=== PATIENT | female | born 1980 | race African-American/Black ===

== ENCOUNTER 2018-08-19 07:11 | Inpatient (IN) | payer OTHER ==
[2018-08-19 08:31] LABS: BASO % 0.5 % (0.0-1.0); EOS # 0.1 10^3/uL (0.0-0.50); EOS % 0.6 % (0.0-3.0); HEMATOCRIT 35.3 % (36.0-47.0); HEMOGLOBIN 12.3 g/dl (12.0-15.5); IMMATURE GRANULOCYTE % 0.5 % (0-3.0); LYMPH # 1.7 10^3/uL (1.5-4.5); LYMPH % 19.2 % (24.0-44.0); MEAN CORPUSCULAR HEMOGLOBIN 33.4 pg (27.0-33.0); MEAN CORPUSCULAR HGB CONC 34.8 g/dl (32.0-36.5); MEAN CORPUSCULAR VOLUME 95.9 fl (80.0-96.0); MONO # 0.9 10^3/uL (0.0-0.8); MONO % 10.3 % (0.0-5.0); NEUTROPHILS # 6.1 10^3/uL (1.8-7.7); NEUTROPHILS % 68.9 % (36.0-66.0); PLATELET COUNT, AUTOMATED 306 10^3/uL (150-450); RED BLOOD COUNT 3.68 10^6/uL (4.00-5.40); RED CELL DISTRIBUTION WIDTH 14.8 % (11.5-14.5); WHITE BLOOD COUNT 8.8 10^3/uL (4.0-10.0)
[2018-08-19] MEDS: NS 1,000 ML IV ×3 (08:39→20:58)
[2018-08-19] MEDS: MORPHINE 4 MG/ML 1ML VIAL/SYRINGE (J2270) IV ×2 (08:39→20:07)
[2018-08-19] MEDS: GASTROGRAFIN SOLUTION 30ML PO ×2 (08:45→08:46)
[2018-08-19 08:54] LABS: ALBUMIN 3.8 GM/DL (3.2-5.2); ALBUMIN/GLOBULIN RATIO 0.93 (1.00-1.93); ALKALINE PHOSPHATASE 220 U/L (45-117); ALT/SGPT 139 U/L (12-78); ANION GAP 12 MEQ/L (8-16); AST/SGOT 357 U/L (7-37); BILIRUBIN,DIRECT 0.6 MG/DL (0.0-0.2); BILIRUBIN,TOTAL 0.9 MG/DL (0.2-1.0); BLOOD UREA NITROGEN 5 MG/DL (7-18); CALCIUM LEVEL 9.6 MG/DL (8.5-10.1); CARBON DIOXIDE LEVEL 32 MEQ/L (21-32); CHLORIDE LEVEL 92 MEQ/L (98-107); CREATININE FOR GFR 0.66 MG/DL (0.55-1.30); GLOMERULAR FILTRATION RATE > 60.0 (>60); GLUCOSE, FASTING 90 MG/DL (70-100); LIPASE 397 U/L (73-393); POTASSIUM SERUM 2.5 MEQ/L (3.5-5.1); SODIUM LEVEL 136 MEQ/L (136-145); TOTAL PROTEIN 7.9 GM/DL (6.4-8.2)
[2018-08-19 08:59] LABS: CONTROL LINE HCG INT CTR LINE PRESENT; HCG, SERUM QUALITATIVE NEGATIVE (NEGATIVE)
[2018-08-19] MEDS: POTASSIUM CHLORIDE 10 MEQ SR TABLET PO ×2 (09:12→19:56)
[2018-08-19] MEDS: KCL 10MEQ/100ML SWI (KRUN) 10 MEQ in APPROPRIATE DILUENT 1 EA IV ×2 (09:13→19:57)
[2018-08-19] MEDS ORDERED: ONDANSETRON 4MG/2ML VIAL (J2405) As Ordered (09:43)
[2018-08-19] MEDS: ONDANSETRON 4MG/2ML VIAL (J2405) IV (09:45)
[2018-08-19] MEDS ORDERED: ISOVUE-370 76% 100ML VIAL (Q9967) As Ordered (10:00)
[2018-08-19 11:06] LABS: GOLD SPEC TUBE RECIEVED
[2018-08-19] MEDS ORDERED: ONDANSETRON 4MG/2ML VIAL (J2405) IV (13:00)
[2018-08-19 13:57] LABS: MAGNESIUM LEVEL 1.7 MG/DL (1.8-2.4)
[2018-08-19] MEDS: PANTOPRAZOLE 40MG INJ (PROTONIX) (C9113) IV (15:52)
[2018-08-19] MEDS: MAGNESIUM OXIDE 400 MG TAB (MAG-OX) PO (15:53)
[2018-08-19] MEDS: KCL 40MEQ in NS 1000ML 1,000 ML IV (21:35)
[2018-08-20] MEDS: MORPHINE 4 MG/ML 1ML VIAL/SYRINGE (J2270) IV ×2 (05:37→21:39)
[2018-08-20] MEDS: NS 1,000 ML IV ×2 (05:38→20:55)
[2018-08-20 06:50] LABS: HEMOGLOBIN 9.8 g/dl (12.0-15.5); MEAN CORPUSCULAR HEMOGLOBIN 33.4 pg (27.0-33.0); MEAN CORPUSCULAR HGB CONC 33.8 g/dl (32.0-36.5); PLATELET COUNT, AUTOMATED 258 10^3/uL (150-450); RED BLOOD COUNT 2.93 10^6/uL (4.00-5.40); RED CELL DISTRIBUTION WIDTH 15.2 % (11.5-14.5); WHITE BLOOD COUNT 7.3 10^3/uL (4.0-10.0)
[2018-08-20 07:16] LABS: ALBUMIN 2.8 GM/DL (3.2-5.2); ALBUMIN/GLOBULIN RATIO 0.85 (1.00-1.93); ALKALINE PHOSPHATASE 149 U/L (45-117); ALT/SGPT 79 U/L (12-78); ANION GAP 7 MEQ/L (8-16); AST/SGOT 133 U/L (7-37); BILIRUBIN,TOTAL 1.2 MG/DL (0.2-1.0); BLOOD UREA NITROGEN 3 MG/DL (7-18); CALCIUM LEVEL 7.9 MG/DL (8.5-10.1); CARBON DIOXIDE LEVEL 29 MEQ/L (21-32); CHLORIDE LEVEL 99 MEQ/L (98-107); CREATININE FOR GFR 0.46 MG/DL (0.55-1.30); GLOMERULAR FILTRATION RATE > 60.0 (>60); GLUCOSE, FASTING 86 MG/DL (70-100); LIPASE 340 U/L (73-393); MAGNESIUM LEVEL 1.3 MG/DL (1.8-2.4); SODIUM LEVEL 135 MEQ/L (136-145); TOTAL PROTEIN 6.1 GM/DL (6.4-8.2)
[2018-08-20] MEDS: ENOXAPARIN 40 MG/0.4 ML SYRINGE (J1650) SC (08:22)
[2018-08-20] MEDS: MAGNESIUM OXIDE 400 MG TAB (MAG-OX) PO ×2 (08:22→20:54)
[2018-08-20] MEDS: PANTOPRAZOLE 40MG INJ (PROTONIX) (C9113) IV (08:22)
[2018-08-20] MEDS: MAG SULF 1GM/100ML (MAG RUN) 1 GM in APPROPRIATE DILUENT 1 EA IV ×3 (08:23→10:51)
[2018-08-20] MEDS: POTASSIUM CHLORIDE 10 MEQ SR TABLET PO (08:23)
[2018-08-21] MEDS: NS 1,000 ML IV ×3 (05:18→23:10)
[2018-08-21 06:12] LABS: HEMATOCRIT 29.1 % (36.0-47.0); HEMOGLOBIN 9.9 g/dl (12.0-15.5); MEAN CORPUSCULAR HEMOGLOBIN 33.4 pg (27.0-33.0); MEAN CORPUSCULAR VOLUME 98.3 fl (80.0-96.0); PLATELET COUNT, AUTOMATED 269 10^3/uL (150-450); RED BLOOD COUNT 2.96 10^6/uL (4.00-5.40); RED CELL DISTRIBUTION WIDTH 14.7 % (11.5-14.5); WHITE BLOOD COUNT 8.9 10^3/uL (4.0-10.0)
[2018-08-21 06:39] LABS: ALBUMIN 2.7 GM/DL (3.2-5.2); ALBUMIN/GLOBULIN RATIO 0.87 (1.00-1.93); ALKALINE PHOSPHATASE 136 U/L (45-117); ALT/SGPT 62 U/L (12-78); ANION GAP 8 MEQ/L (8-16); AST/SGOT 102 U/L (7-37); BILIRUBIN,TOTAL 0.8 MG/DL (0.2-1.0); BLOOD UREA NITROGEN < 1 MG/DL (7-18); CALCIUM LEVEL 7.8 MG/DL (8.5-10.1); CARBON DIOXIDE LEVEL 29 MEQ/L (21-32); CHLORIDE LEVEL 103 MEQ/L (98-107); CHOLESTEROL LEVEL 157 MG/DL (<200); CHOLESTEROL RISK RATIO 2.121 (<5); GLOMERULAR FILTRATION RATE > 60.0 (>60); GLUCOSE, FASTING 91 MG/DL (70-100); HDL CHOLESTEROL 74 MG/DL (>40); LDL CHOLESTEROL 69 MG/DL (<100); MAGNESIUM LEVEL 1.7 MG/DL (1.8-2.4); NON-HDL-C 83 MG/DL; SODIUM LEVEL 140 MEQ/L (136-145); TOTAL PROTEIN 5.8 GM/DL (6.4-8.2); TRIGLYCERIDES LEVEL 71 MG/DL (<150)
[2018-08-21] MEDS: MAGNESIUM OXIDE 400 MG TAB (MAG-OX) PO ×2 (08:52→20:25)
[2018-08-21] MEDS: PANTOPRAZOLE 40MG INJ (PROTONIX) (C9113) IV (08:52)
[2018-08-21] MEDS: ENOXAPARIN 40 MG/0.4 ML SYRINGE (J1650) SC (08:52)
[2018-08-21] MEDS: POTASSIUM CHLORIDE 10 MEQ SR TABLET PO (08:52)
[2018-08-21] MEDS: KCL 10MEQ/100ML SWI (KRUN) 10 MEQ in APPROPRIATE DILUENT 1 EA IV ×2 (08:54→13:08)
[2018-08-21] MEDS: MORPHINE 4 MG/ML 1ML VIAL/SYRINGE (J2270) IV ×3 (09:05→20:25)
[2018-08-21 11:09] LABS: HEPATITIS B SURFACE ANTIGEN NEGATIVE (NEGATIVE)
[2018-08-21 11:33] LABS: HEPATITIS C VIRUS ABY INDEX 0.1 INDEX (<0.8)
[2018-08-21 11:34] LABS: HEPATITIS B CORE ANTIBODY IGM NEGATIVE (NEGATIVE)
[2018-08-21 11:37] LABS: HEPATITIS A ANTIBODY IGM NEGATIVE (NEGATIVE)
[2018-08-21 17:44] LABS: ANION GAP 8 MEQ/L (8-16); BLOOD UREA NITROGEN < 1 MG/DL (7-18); CALCIUM LEVEL 8.2 MG/DL (8.5-10.1); CARBON DIOXIDE LEVEL 27 MEQ/L (21-32); CHLORIDE LEVEL 101 MEQ/L (98-107); CREATININE FOR GFR 0.48 MG/DL (0.55-1.30); GLOMERULAR FILTRATION RATE > 60.0 (>60); GLUCOSE, FASTING 96 MG/DL (70-100); POTASSIUM SERUM 3.7 MEQ/L (3.5-5.1); SODIUM LEVEL 136 MEQ/L (136-145)
[2018-08-22 06:40] LABS: HEMATOCRIT 28.7 % (36.0-47.0); HEMOGLOBIN 9.9 g/dl (12.0-15.5); MEAN CORPUSCULAR HEMOGLOBIN 33.4 pg (27.0-33.0); MEAN CORPUSCULAR HGB CONC 34.5 g/dl (32.0-36.5); PLATELET COUNT, AUTOMATED 283 10^3/uL (150-450); RED BLOOD COUNT 2.96 10^6/uL (4.00-5.40); WHITE BLOOD COUNT 9.7 10^3/uL (4.0-10.0)
[2018-08-22] MEDS: NS 1,000 ML IV (06:47)
[2018-08-22 07:06] LABS: ALBUMIN 2.5 GM/DL (3.2-5.2); ALBUMIN/GLOBULIN RATIO 0.76 (1.00-1.93); ALKALINE PHOSPHATASE 143 U/L (45-117); ALT/SGPT 61 U/L (12-78); ANION GAP 7 MEQ/L (8-16); AST/SGOT 111 U/L (7-37); BILIRUBIN,TOTAL 0.7 MG/DL (0.2-1.0); BLOOD UREA NITROGEN < 1 MG/DL (7-18); CALCIUM LEVEL 7.7 MG/DL (8.5-10.1); CARBON DIOXIDE LEVEL 27 MEQ/L (21-32); CHLORIDE LEVEL 102 MEQ/L (98-107); CREATININE FOR GFR 0.47 MG/DL (0.55-1.30); GLOMERULAR FILTRATION RATE > 60.0 (>60); GLUCOSE, FASTING 83 MG/DL (70-100); MAGNESIUM LEVEL 1.5 MG/DL (1.8-2.4); POTASSIUM SERUM 3.4 MEQ/L (3.5-5.1); SODIUM LEVEL 136 MEQ/L (136-145); TOTAL PROTEIN 5.8 GM/DL (6.4-8.2)
[2018-08-22 07:51] LABS: LIPASE 334 U/L (73-393)
[2018-08-22] MEDS: ENOXAPARIN 40 MG/0.4 ML SYRINGE (J1650) SC (09:00)
[2018-08-22] MEDS: MAGNESIUM OXIDE 400 MG TAB (MAG-OX) PO (09:41)
[2018-08-22] MEDS: PANTOPRAZOLE 40MG INJ (PROTONIX) (C9113) IV (10:01)
== END 2018-08-22 10:24 | disposition home or self-care (01) | DRG 440 ==
LOC: M ED 07:11 → M ED INP 12:58 → M MSPAV 15:26
PROVIDERS: Internal Medicine
DX: K85.10 Biliary acute pancreatitis without necrosis or infection (principal); E87.6 Hypokalemia; I10 Essential (primary) hypertension; K25.9 Gastric ulcer, unspecified as acute or chronic, without hemorrhage or perforation; D50.9 Iron deficiency anemia, unspecified; K82.9 Disease of gallbladder, unspecified; F10.10 Alcohol abuse, uncomplicated; K21.9 Gastro-esophageal reflux disease without esophagitis; E83.42 Hypomagnesemia; Z79.899 Other long term (current) drug therapy

== ENCOUNTER 2018-09-30 17:01 | Emergency (ER) | payer OTHER ==
[2018-09-30 17:56] LABS: BASO % 0.3 % (0.0-1.0); EOS % 0.3 % (0.0-3.0); HEMATOCRIT 31.1 % (36.0-47.0); HEMOGLOBIN 10.7 g/dl (12.0-15.5); IMMATURE GRANULOCYTE % 0.2 % (0-3.0); LYMPH # 1.7 10^3/uL (1.5-4.5); LYMPH % 19.5 % (24.0-44.0); MEAN CORPUSCULAR HEMOGLOBIN 34.3 pg (27.0-33.0); MEAN CORPUSCULAR HGB CONC 34.4 g/dl (32.0-36.5); MEAN CORPUSCULAR VOLUME 99.7 fl (80.0-96.0); MONO # 0.7 10^3/uL (0.0-0.8); MONO % 7.6 % (0.0-5.0); NEUTROPHILS # 6.3 10^3/uL (1.8-7.7); NEUTROPHILS % 72.1 % (36.0-66.0); PLATELET COUNT, AUTOMATED 189 10^3/uL (150-450); RED BLOOD COUNT 3.12 10^6/uL (4.00-5.40); RED CELL DISTRIBUTION WIDTH 14.4 % (11.5-14.5); WHITE BLOOD COUNT 8.8 10^3/uL (4.0-10.0)
[2018-09-30 18:02] LABS: AMORPHOUS SEDIMENT RFX LARGE (NEGATIVE); KETONE, URINE AUTO RFX TRACE mg/dL (NEGATIVE); MUCUS, URINE RFX LARGE (NEGATIVE); NITRITE, URINE AUTO RFX NEGATIVE (NEGATIVE); RBC, URINE AUTO RFX 2 /HPF (0-3); SPECIFIC GRAVITY UR AUTO RFX 1.023 (1.002-1.035); SQUAM EPITHELIAL CELL UR AURFX 4 /HPF (0-6); WBC, URINE AUTO RFX 4 /HPF (0-3)
[2018-09-30 18:17] LABS: ANION GAP 12 MEQ/L (8-16); AST/SGOT 557 U/L (7-37); BLOOD UREA NITROGEN 4 MG/DL (7-18); CALCIUM LEVEL 9.3 MG/DL (8.5-10.1); CARBON DIOXIDE LEVEL 29 MEQ/L (21-32); CHLORIDE LEVEL 97 MEQ/L (98-107); CREATININE FOR GFR 0.59 MG/DL (0.55-1.30); GLOMERULAR FILTRATION RATE > 60.0 (>60); GLUCOSE, FASTING 82 MG/DL (70-100); POTASSIUM SERUM 3.3 MEQ/L (3.5-5.1); SODIUM LEVEL 138 MEQ/L (136-145)
[2018-09-30 18:18] LABS: ALBUMIN 3.7 GM/DL (3.2-5.2); ALKALINE PHOSPHATASE 258 U/L (45-117); ALT/SGPT 141 U/L (12-78); AMYLASE 75 U/L (25-115); BILIRUBIN,DIRECT 0.5 MG/DL (0.0-0.2); BILIRUBIN,TOTAL 0.7 MG/DL (0.2-1.0); LIPASE 480 U/L (73-393); MAGNESIUM LEVEL 1.1 MG/DL (1.8-2.4); TOTAL PROTEIN 7.8 GM/DL (6.4-8.2)
[2018-09-30 18:42] LABS: LEUKOCYTE ESTERASE UR AUTO RFX TRACE (NEGATIVE)
== END 2018-09-30 19:07 | disposition home or self-care (01) ==
LOC: M ED 17:01
DX: R10.13 Epigastric pain (principal); I10 Essential (primary) hypertension; D53.9 Nutritional anemia, unspecified; E87.6 Hypokalemia; E83.42 Hypomagnesemia; K75.81 Nonalcoholic steatohepatitis (NASH); R80.9 Proteinuria, unspecified; R74.8 Abnormal levels of other serum enzymes; K21.9 Gastro-esophageal reflux disease without esophagitis; K83.8 Other specified diseases of biliary tract; K27.9 Peptic ulcer, site unspecified, unspecified as acute or chronic, without hemorrhage or perforation; F17.200 Nicotine dependence, unspecified, uncomplicated; Z79.899 Other long term (current) drug therapy; F10.10 Alcohol abuse, uncomplicated
CPT/HCPCS: 82150

== ENCOUNTER 2018-10-01 16:44 | Inpatient (IN) | payer OTHER ==
[2018-10-01] MEDS ORDERED: ISOVUE-370 76% 100ML VIAL (Q9967) As Ordered (17:11)
[2018-10-01] MEDS: NS 1,000 ML IV (17:15)
[2018-10-01 17:35] LABS: BASO % 0.2 % (0.0-1.0); EOS % 0.4 % (0.0-3.0); HEMATOCRIT 32.9 % (36.0-47.0); HEMOGLOBIN 11.4 g/dl (12.0-15.5); IMMATURE GRANULOCYTE % 0.4 % (0-3.0); LYMPH # 1.5 10^3/uL (1.5-4.5); LYMPH % 18.2 % (24.0-44.0); MEAN CORPUSCULAR HEMOGLOBIN 34.1 pg (27.0-33.0); MEAN CORPUSCULAR HGB CONC 34.7 g/dl (32.0-36.5); MEAN CORPUSCULAR VOLUME 98.5 fl (80.0-96.0); MONO # 0.7 10^3/uL (0.0-0.8); MONO % 8.9 % (0.0-5.0); NEUTROPHILS # 5.8 10^3/uL (1.8-7.7); NEUTROPHILS % 71.9 % (36.0-66.0); PLATELET COUNT, AUTOMATED 215 10^3/uL (150-450); RED BLOOD COUNT 3.34 10^6/uL (4.00-5.40); RED CELL DISTRIBUTION WIDTH 14.2 % (11.5-14.5)
[2018-10-01 17:40] LABS: INR 1.41; PROTHROMBIN TIME 17.4 SECONDS (12.1-14.4)
[2018-10-01 17:41] LABS: PARTIAL THROMBOPLASTIN TIME 32.8 SECONDS (25.4-37.6)
[2018-10-01 17:46] LABS: AMMONIA 58 uMOL/L (<32)
[2018-10-01 18:01] LABS: ALBUMIN 3.7 GM/DL (3.2-5.2); ALBUMIN/GLOBULIN RATIO 0.93 (1.00-1.93); ALKALINE PHOSPHATASE 258 U/L (45-117); ALT/SGPT 120 U/L (12-78); AMYLASE 97 U/L (25-115); ANION GAP 11 MEQ/L (8-16); AST/SGOT 371 U/L (7-37); BILIRUBIN,DIRECT 0.8 MG/DL (0.0-0.2); BILIRUBIN,TOTAL 1.5 MG/DL (0.2-1.0); BLOOD UREA NITROGEN 4 MG/DL (7-18); CALCIUM LEVEL 8.9 MG/DL (8.5-10.1); CARBON DIOXIDE LEVEL 28 MEQ/L (21-32); CHLORIDE LEVEL 95 MEQ/L (98-107); CREATININE FOR GFR 0.69 MG/DL (0.55-1.30); GLOMERULAR FILTRATION RATE > 60.0 (>60); GLUCOSE, FASTING 92 MG/DL (70-100); LIPASE 1071 U/L (73-393); POTASSIUM SERUM 3.3 MEQ/L (3.5-5.1); SODIUM LEVEL 134 MEQ/L (136-145); TOTAL PROTEIN 7.7 GM/DL (6.4-8.2)
[2018-10-01 19:06] LABS: KETONE, URINE AUTO RFX TRACE mg/dL (NEGATIVE); LEUKOCYTE ESTERASE UR AUTO RFX NEGATIVE (NEGATIVE); NITRITE, URINE AUTO RFX NEGATIVE (NEGATIVE); RBC, URINE AUTO RFX 2 /HPF (0-3); SQUAM EPITHELIAL CELL UR AURFX 1 /HPF (0-6); WBC, URINE AUTO RFX 2 /HPF (0-3)
[2018-10-01 19:13] LABS: SPECIFIC GRAVITY UR AUTO RFX >1.060 (1.002-1.035)
[2018-10-01] MEDS ORDERED: ONDANSETRON 4MG/2ML VIAL (J2405) IV (22:15)
[2018-10-01] MEDS ORDERED: LORazepam 2 MG TAB PO (22:30)
[2018-10-01 22:33] LABS: ETHYL ALCOHOL (ETHANOL) 0.004 % (0.000-0.010)
[2018-10-02] MEDS: POTASSIUM CHLORIDE 10 MEQ SR TABLET PO ×3 (00:54→08:28)
[2018-10-02] MEDS: THIAMINE 100 MG TAB PO ×3 (00:54→20:35)
[2018-10-02] MEDS: NS 1,000 ML IV (00:54)
[2018-10-02] MEDS: MORPHINE 4 MG/ML 1ML VIAL/SYRINGE (J2270) IV ×3 (01:14→20:36)
[2018-10-02] MEDS: LR 1,000 ML IV ×3 (02:04→07:41)
[2018-10-02 06:45] LABS: HEMOGLOBIN 9.7 g/dl (12.0-15.5); MEAN CORPUSCULAR HEMOGLOBIN 34.6 pg (27.0-33.0); MEAN CORPUSCULAR HGB CONC 34.6 g/dl (32.0-36.5); PLATELET COUNT, AUTOMATED 184 10^3/uL (150-450); RED CELL DISTRIBUTION WIDTH 13.8 % (11.5-14.5); WHITE BLOOD COUNT 6.3 10^3/uL (4.0-10.0)
[2018-10-02 07:23] LABS: ALBUMIN 2.8 GM/DL (3.2-5.2); ALBUMIN/GLOBULIN RATIO 0.78 (1.00-1.93); ALKALINE PHOSPHATASE 188 U/L (45-117); ALT/SGPT 81 U/L (12-78); ANION GAP 11 MEQ/L (8-16); AST/SGOT 201 U/L (7-37); BILIRUBIN,TOTAL 1.4 MG/DL (0.2-1.0); BLOOD UREA NITROGEN 3 MG/DL (7-18); CALCIUM LEVEL 7.7 MG/DL (8.5-10.1); CARBON DIOXIDE LEVEL 24 MEQ/L (21-32); CHLORIDE LEVEL 101 MEQ/L (98-107); CHOLESTEROL LEVEL 162 MG/DL (<200); GLOMERULAR FILTRATION RATE > 60.0 (>60); GLUCOSE, FASTING 76 MG/DL (70-100); HDL CHOLESTEROL 75 MG/DL (>40); LDL CHOLESTEROL 69 MG/DL (<100); MAGNESIUM LEVEL 0.9 MG/DL (1.8-2.4); NON-HDL-C 87 MG/DL; POTASSIUM SERUM 3.6 MEQ/L (3.5-5.1); SODIUM LEVEL 136 MEQ/L (136-145); TOTAL PROTEIN 6.4 GM/DL (6.4-8.2); TRIGLYCERIDES LEVEL 89 MG/DL (<150)
[2018-10-02] MEDS: MULTIVITAMINS/MINERALS THERAP 1 TAB PO (08:00)
[2018-10-02] MEDS: FOLIC ACID 1 MG TAB PO (08:00)
[2018-10-02] MEDS: OMEPRAZOLE 20 MG CAP PO (08:00)
[2018-10-02] MEDS: MAG SULF 1GM/100ML (MAG RUN) 1 GM in APPROPRIATE DILUENT 1 EA IV ×3 (08:00→10:10)
[2018-10-02] MEDS: OXAZEPAM 10 MG CAP PO ×3 (08:28→17:44)
[2018-10-02] MEDS: POTASSIUM CHLORIDE INJ 20 MEQ in LR 1,000 ML IV ×3 (11:18→17:28)
[2018-10-03] MEDS: POTASSIUM CHLORIDE INJ 20 MEQ in LR 1,000 ML IV ×2 (00:12→06:39)
[2018-10-03] MEDS: OXAZEPAM 10 MG CAP PO ×3 (05:51→12:20)
[2018-10-03 06:21] LABS: HEMATOCRIT 30.2 % (36.0-47.0); HEMOGLOBIN 10.1 g/dl (12.0-15.5); MEAN CORPUSCULAR HGB CONC 33.4 g/dl (32.0-36.5); MEAN CORPUSCULAR VOLUME 101.7 fl (80.0-96.0); PLATELET COUNT, AUTOMATED 199 10^3/uL (150-450); RED BLOOD COUNT 2.97 10^6/uL (4.00-5.40); WHITE BLOOD COUNT 6.7 10^3/uL (4.0-10.0)
[2018-10-03 06:31] LABS: INR 1.14; PROTHROMBIN TIME 14.8 SECONDS (12.1-14.4)
[2018-10-03 06:50] LABS: ALBUMIN 2.7 GM/DL (3.2-5.2); ALBUMIN/GLOBULIN RATIO 0.69 (1.00-1.93); ALKALINE PHOSPHATASE 190 U/L (45-117); ALT/SGPT 69 U/L (12-78); ANION GAP 9 MEQ/L (8-16); AST/SGOT 148 U/L (7-37); BILIRUBIN,TOTAL 0.6 MG/DL (0.2-1.0); BLOOD UREA NITROGEN 4 MG/DL (7-18); CALCIUM LEVEL 8.1 MG/DL (8.5-10.1); CARBON DIOXIDE LEVEL 24 MEQ/L (21-32); CHLORIDE LEVEL 104 MEQ/L (98-107); CREATININE FOR GFR 0.55 MG/DL (0.55-1.30); GLOMERULAR FILTRATION RATE > 60.0 (>60); GLUCOSE, FASTING 106 MG/DL (70-100); LIPASE 471 U/L (73-393); MAGNESIUM LEVEL 1.7 MG/DL (1.8-2.4); POTASSIUM SERUM 4.4 MEQ/L (3.5-5.1); SODIUM LEVEL 137 MEQ/L (136-145); TOTAL PROTEIN 6.6 GM/DL (6.4-8.2)
[2018-10-03] MEDS: MAG SULF 1GM/100ML (MAG RUN) 1 GM in APPROPRIATE DILUENT 1 EA IV (07:54)
[2018-10-03] MEDS: OMEPRAZOLE 20 MG CAP PO (07:56)
[2018-10-03] MEDS: THIAMINE 100 MG TAB PO ×2 (07:56→19:50)
[2018-10-03] MEDS: MULTIVITAMINS/MINERALS THERAP 1 TAB PO (07:57)
[2018-10-03] MEDS: FOLIC ACID 1 MG TAB PO (07:57)
[2018-10-03] MEDS: LR 1,000 ML IV ×2 (11:01→19:50)
[2018-10-03] MEDS: MORPHINE 4 MG/ML 1ML VIAL/SYRINGE (J2270) IV (19:50)
[2018-10-04 05:36] LABS: HEMATOCRIT 28.3 % (36.0-47.0); HEMOGLOBIN 9.6 g/dl (12.0-15.5); MEAN CORPUSCULAR HEMOGLOBIN 33.9 pg (27.0-33.0); MEAN CORPUSCULAR HGB CONC 33.9 g/dl (32.0-36.5); PLATELET COUNT, AUTOMATED 225 10^3/uL (150-450); RED BLOOD COUNT 2.83 10^6/uL (4.00-5.40); RED CELL DISTRIBUTION WIDTH 14.2 % (11.5-14.5)
[2018-10-04 05:45] LABS: INR 1.12; PROTHROMBIN TIME 14.6 SECONDS (12.1-14.4)
[2018-10-04] MEDS: IBUPROFEN 400 MG TAB PO (05:46)
[2018-10-04] MEDS: LR 1,000 ML IV ×3 (05:47→23:56)
[2018-10-04 05:57] LABS: ALBUMIN 2.7 GM/DL (3.2-5.2); ALBUMIN/GLOBULIN RATIO 0.73 (1.00-1.93); ALKALINE PHOSPHATASE 170 U/L (45-117); ALT/SGPT 63 U/L (12-78); ANION GAP 7 MEQ/L (8-16); AST/SGOT 113 U/L (7-37); BILIRUBIN,TOTAL 0.5 MG/DL (0.2-1.0); BLOOD UREA NITROGEN 5 MG/DL (7-18); CALCIUM LEVEL 8.3 MG/DL (8.5-10.1); CARBON DIOXIDE LEVEL 24 MEQ/L (21-32); CHLORIDE LEVEL 103 MEQ/L (98-107); CREATININE FOR GFR 0.57 MG/DL (0.55-1.30); GLOMERULAR FILTRATION RATE > 60.0 (>60); GLUCOSE, FASTING 94 MG/DL (70-100); LIPASE 553 U/L (73-393); MAGNESIUM LEVEL 1.4 MG/DL (1.8-2.4); POTASSIUM SERUM 3.9 MEQ/L (3.5-5.1); SODIUM LEVEL 134 MEQ/L (136-145); TOTAL PROTEIN 6.4 GM/DL (6.4-8.2)
[2018-10-04] MEDS: OMEPRAZOLE 20 MG CAP PO (08:33)
[2018-10-04] MEDS: MULTIVITAMINS/MINERALS THERAP 1 TAB PO (08:33)
[2018-10-04] MEDS: FOLIC ACID 1 MG TAB PO (08:33)
[2018-10-04] MEDS: THIAMINE 100 MG TAB PO ×2 (08:33→09:00)
[2018-10-04] MEDS: MAG SULF 1GM/100ML (MAG RUN) 1 GM in APPROPRIATE DILUENT 1 EA IV ×2 (09:41→10:49)
[2018-10-04] MEDS: SUCRALFATE 1 GM TAB PO ×2 (12:07→17:41)
[2018-10-04] MEDS: ACETAMINOPHEN TAB 650MG DOSE (2X325MG) PO (18:20)
[2018-10-04] MEDS: MORPHINE 4 MG/ML 1ML VIAL/SYRINGE (J2270) IV (22:01)
[2018-10-05] MEDS: ACETAMINOPHEN TAB 650MG DOSE (2X325MG) PO (03:40)
[2018-10-05] MEDS: OXAZEPAM 10 MG CAP PO (03:40)
[2018-10-05 05:56] LABS: HEMATOCRIT 27.7 % (36.0-47.0); HEMOGLOBIN 9.5 g/dl (12.0-15.5); MEAN CORPUSCULAR HEMOGLOBIN 33.9 pg (27.0-33.0); MEAN CORPUSCULAR HGB CONC 34.3 g/dl (32.0-36.5); MEAN CORPUSCULAR VOLUME 98.9 fl (80.0-96.0); PLATELET COUNT, AUTOMATED 237 10^3/uL (150-450); RED CELL DISTRIBUTION WIDTH 13.9 % (11.5-14.5); WHITE BLOOD COUNT 6.1 10^3/uL (4.0-10.0)
[2018-10-05 06:11] LABS: INR 1.07
[2018-10-05 06:16] LABS: ALBUMIN 2.7 GM/DL (3.2-5.2); ALBUMIN/GLOBULIN RATIO 0.71 (1.00-1.93); ALKALINE PHOSPHATASE 156 U/L (45-117); ALT/SGPT 58 U/L (12-78); ANION GAP 7 MEQ/L (8-16); AST/SGOT 102 U/L (7-37); BILIRUBIN,TOTAL 0.4 MG/DL (0.2-1.0); BLOOD UREA NITROGEN 5 MG/DL (7-18); CALCIUM LEVEL 8.3 MG/DL (8.5-10.1); CARBON DIOXIDE LEVEL 25 MEQ/L (21-32); CHLORIDE LEVEL 103 MEQ/L (98-107); GLOMERULAR FILTRATION RATE > 60.0 (>60); GLUCOSE, FASTING 84 MG/DL (70-100); LIPASE 460 U/L (73-393); MAGNESIUM LEVEL 1.7 MG/DL (1.8-2.4); POTASSIUM SERUM 3.5 MEQ/L (3.5-5.1); SODIUM LEVEL 135 MEQ/L (136-145); TOTAL PROTEIN 6.5 GM/DL (6.4-8.2)
[2018-10-05] MEDS: MAG SULF 1GM/100ML (MAG RUN) 1 GM in APPROPRIATE DILUENT 1 EA IV ×3 (09:00→10:32)
[2018-10-05] MEDS: OMEPRAZOLE 20 MG CAP PO (09:02)
[2018-10-05] MEDS: SUCRALFATE 1 GM TAB PO ×2 (09:02→12:02)
[2018-10-05] MEDS: MULTIVITAMINS/MINERALS THERAP 1 TAB PO (09:02)
[2018-10-05] MEDS: FOLIC ACID 1 MG TAB PO (09:03)
[2018-10-05] MEDS: LR 1,000 ML IV (09:03)
[2018-10-05] MEDS: THIAMINE 100 MG TAB PO (09:03)
[2018-10-05] MEDS: POTASSIUM CHLORIDE 10 MEQ SR TABLET PO (12:03)
== END 2018-10-05 13:09 | disposition home or self-care (01) | DRG 440 ==
LOC: M ED 16:44 → M ED INP 22:14 → M MSPAV 23:55
DX: K85.20 Alcohol induced acute pancreatitis without necrosis or infection (principal); F17.210 Nicotine dependence, cigarettes, uncomplicated; F10.10 Alcohol abuse, uncomplicated; E87.6 Hypokalemia; E83.42 Hypomagnesemia; K27.9 Peptic ulcer, site unspecified, unspecified as acute or chronic, without hemorrhage or perforation; Z79.899 Other long term (current) drug therapy

== ENCOUNTER 2019-01-15 05:47 | Inpatient (IN) | payer OTHER ==
[2019-01-15] VITALS (12 sets, daily range): BP systolic 136–155; BP diastolic 77–90; O2SAT 98–100
[~2019-01-15] VITALS: Ht 172.7 cm; Wt 69.5 kg
[~2019-01-15 05:47] MED LIST: FERR325T3 PO; FOLI1TAB11 PO; HYDR-3713 PO; HYDR25TAB PO; K-TA10TA2 PO; KLOR20TA42 PO; MACR100C43 PO; MAG400TA PO; MAGN250T11 PO; ONDA8TAB7 PO; OXYC1TAB23 PO; POTA10CA32 PO; PRIL20TA2 PO; THIA100TA PO; VITMTA PO
[2019-01-15] MEDS ORDERED: LISI10TA4 PO (06:12)
[2019-01-15] MEDS ORDERED: dexameTHASONE 20 MG/5 ML VIAL (J1100) IV ONE (06:45)
[2019-01-15] MEDS ORDERED: diphenhydrAMINE INJ 50MG/ML VIAL (J1200) IV STA (07:15)
[2019-01-15] MEDS ORDERED: FAMOTIDINE 20 MG TAB PO ONE (07:15)
[2019-01-15] MEDS ORDERED: FAMOTIDINE IV BAG 20 MG in APPROPRIATE DILUENT 1 EA IV ONE (07:30)
[2019-01-15 07:33] LABS: BLOOD UREA NITROGEN 7 MG/DL (7-18); CALCIUM LEVEL 9.6 MG/DL (8.5-10.1); CARBON DIOXIDE LEVEL 24 MEQ/L (21-32); CHLORIDE LEVEL 104 MEQ/L (98-107); CREATININE FOR GFR 0.82 MG/DL (0.55-1.30); GLOMERULAR FILTRATION RATE > 60.0 (>60); GLUCOSE, FASTING 94 MG/DL (70-100); SODIUM LEVEL 139 MEQ/L (136-145)
[2019-01-15 07:44] LABS: BASO % 0.7 % (0.0-1.0); EOS # 0.1 10^3/uL (0.0-0.50); EOS % 1.5 % (0.0-3.0); HEMATOCRIT 35.7 % (36.0-47.0); HEMOGLOBIN 12.2 g/dl (12.0-15.5); LYMPH # 2.3 10^3/uL (1.5-4.5); LYMPH % 42.2 % (24.0-44.0); MEAN CORPUSCULAR HEMOGLOBIN 31.7 pg (27.0-33.0); MEAN CORPUSCULAR HGB CONC 34.2 g/dl (32.0-36.5); MEAN CORPUSCULAR VOLUME 92.7 fl (80.0-96.0); MONO # 0.4 10^3/uL (0.0-0.8); MONO % 7.9 % (0.0-5.0); NEUTROPHILS # 2.6 10^3/uL (1.8-7.7); NEUTROPHILS % 47.5 % (36.0-66.0); PLATELET COUNT, AUTOMATED 410 10^3/uL (150-450); RED BLOOD COUNT 3.85 10^6/uL (4.00-5.40); WHITE BLOOD COUNT 5.5 10^3/uL (4.0-10.0)
[2019-01-15] MEDS ORDERED: POTASSIUM CHLORIDE 10 MEQ SR TABLET PO ONE (07:45)
[2019-01-15 08:36] LABS: ALBUMIN 3.9 GM/DL (3.2-5.2); ALT/SGPT 50 U/L (12-78); BILIRUBIN,DIRECT 0.1 MG/DL (0.0-0.2); BILIRUBIN,TOTAL 0.4 MG/DL (0.2-1.0); C REACTIVE PROTEIN QUANTITATIV < 0.30 MG/DL (0.00-0.30); COMPLEMENT C4 24 MG/DL (10-40); TOTAL PROTEIN 8.5 GM/DL (6.4-8.2)
[2019-01-15 08:54] LABS: ERYTHROCYTE SEDIMENTATION RATE 21 mm/hr (0-20)
[2019-01-15] MEDS ORDERED: EPINEPHrine INJ 1 MG/ML 1ML AMP IM STA (09:27)
[2019-01-15] MEDS ORDERED: ISOVUE-370 76% 125ML VIAL (Q9967 PER ML) As Ordered ONE (09:43)
--- NOTE | 2019-01-15 09:57 | REP ---
Chest x-ray: Two views. History: Shortness of breath. . Comparison study: No comparison chest x-ray. . Findings: The lungs are well inflated and free of infiltrate. The pleural angles are sharp. The heart size is normal. Pulmonary vasculature is not increased. No significant bony abnormality is seen. Impression: Negative chest x-ray. Electronically Signed by Kris Walters MD 01/15/2019 09:49 A
[2019-01-15] MEDS ORDERED: OXYMETAZOLINE NASAL SPRAY (AFRIN) As Ordered ONE (09:59)
[2019-01-15] MEDS ORDERED: LIDOCAINE 4% TOPICAL SOLN 50 ML BTL As Ordered ONE (10:00)
[2019-01-15] MEDS ORDERED: MAGN1CAP PO (10:51)
--- NOTE | 2019-01-15 10:51 | REP ---
CT NECK WITH CONTRAST: HISTORY: Facial swelling. CONTRAST: Isovue 370, 75 mL. A BB was placed on the right side of the face at the level of the right zygomatic arch. The naso-, olvin-, and hypopharynx, larynx and subglottic trachea are normal in appearance. The salivary and thyroid glands are normal in size and density. Small lymph nodes less than 1 cm in size are present in the left internal jugular chains, posterior triangles, submandibular and submental areas. There is soft tissue thickening along the buccal surface of the right maxilla and anterior body of the right mandible. This is consistent with a phlegmon. Stranding is present in the overlying subcutaneous tissue consistent with edema. The lung apices are clear. The visualized sinuses are clear. IMPRESSION: There is soft tissue thickening along the buccal surface of the right maxilla and anterior body of the right mandible consistent with a phlegmon. Electronically Signed by Benjy Day MD 01/15/2019 11:05 A
--- NOTE | 2019-01-15 11:07 | ER ---
DATE OF CONSULTATION: 01/15/2019 REASON FOR CONSULTATION: Angioedema without any significant upper airway lesion as per requesting physician in the emergency room. REQUESTING PHYSICIAN: Emergency room HISTORY OF PRESENT ILLNESS: This pleasant 38-year-old -[place] woman reports having no significant problems but did start lisinopril about a week ago. She did not take lisinopril this morning. She did take it yesterday. She started to notice that her right upper lip started to swell. Today she has had no problems with swallowing or drinking or the shortness of breath. She had been in emergency room and she has received steroids and also epinephrine as per the physician. At this point, they are planning on giving some fresh frozen plasma (FFP) but I was asked to evaluate the patient's vocal cords and supraglottic airway. There was no swelling. No stridor. No other significant issues. At this time, she is able to swallow on her own without difficulty. PAST MEDICAL HISTORY: Otherwise unremarkable. PAST SURGICAL HISTORY: Noncontributory. She just recently started the lisinopril a week ago. The patient is in critical room in C2 at [facility]. She is afebrile. Vital signs are stable. The patient has obvious swelling on the right upper lip. She states this progressed into the left upper lip. She is talking fine in multiple words and sentences. No oral discharge or shortness of breath or significant issues. The patient currently is resting comfortably, saturating 100% on room air. The pinna, external canals, tympanic membranes are within normal limits. External nasal pyramids unremarkable. She has obvious swelling of right upper lip starting to progress over to the left side. It is soft, not firm. The hard palate and soft palate are normal. The right lower lip shows mild edema but no significant swelling. Sublingual, the area is unremarkable. No swelling. The tongue is unremarkable. The imaging of the posterior oropharynx is unremarkable. No evidence of any swelling. Neck is supple. After obtaining informed consent for flexible fiberoptic nasal laryngoscopy and indications were discussed with the patient and she agrees and consent was obtained. Time-out was performed. Flexible fiberoptic nasal laryngoscopy was ready to go and the indication is to evaluate the upper airway. Afrin was placed in both nasal cavities followed by topical 4% lidocaine, 0.5 mL in each side and then flexible fiberoptic nasal laryngoscopy was performed and passed through the both right and left cavities. Nasopharynx was clear. Hypopharynx was clear. The vallecula, epiglottis, piriform sinuses, both false vocal cords and true vocal cords were unremarkable. No evidence of any swelling at this time. Floor of mouth and the base of tongue shows no swelling. There is no swelling in the vallecula. IMPRESSION: In this patient with angioedema likely secondary to lisinopril, should respond to medical therapy. No need for urgent intubation at this time. Would see how she responds to the medications. She may need to have every 8 hours steroids to keep that under control and see if this responds. At this point, I do not think she needs another dose of epinephrine but if it progresses, that may be a consideration. Please re-consult if there are any other issues. But currently, there no evidence of any posterior oropharyngeal lesion, it mainly appears to be the upper lip. MTDD
--- NOTE | 2019-01-15 12:02 | HPEPDOC ---
[facility] Medical History & Physical Date of Admission Jan 15, 2019 History and Physical CHIEF COMPLAINT: Facial swelling HISTORY OF PRESENT ILLNESS: Floridalma Salinas is a 38-year-old -[place] female who presents to the emergency department complaining of acute onset of right-sided facial swelling. Patient states that she has been taking hydrochlorothiazide for her high blood pressure for some time now. Given patient's history of hypokalemia, the patient was transitioned to lisinopril by her primary care provider. She began taking t he medication on 01/05/19 with her last dose being yesterday 01/14/19 at approximately 0530. Patient recalls that she when she woke up this morning she noted that her face "felt funny". When she looked in the mirror she noted that her right lower mandible and right upper lip was swollen. This began to progress and she probably presented to the emergency department. She denies any difficulty with breathing, swallowing or drinking. In the emergency room, patient received steroids and epinephrine. Single unit of fresh frozen plasma were hung. Dr. Escoto (ENT) was called to evaluate the patient for risk of airway compromise. Per his note the patient does not have any airway swelling or stridor. Patient denies history of fevers, chills, night sweats, fatigue, changes in weight. She denies headache, changes in vision, nasal congestion or difficulty breathing through her nares. She denies difficulty swallowing. No difficulty breathing or shortness of breath. No history of cough or wheezing. She denies chest pain/pressure. No symptoms of reflux, abdominal pain, difficulty stooling or urinating. Patient does report long-standing neuropathy in her lower extremity. PAST MEDICAL HISTORY: 1. Hypertension 2. Peptic ulcer disease 3. Hypokalemia PAST SURGICAL HISTORY: 1. 2. Hysterectomy SOCIAL HISTORY: Patient is employed at [employer]. Patient has a history of alcohol abuse. She was hospitalized at [facility] in O 10/13 for alcohol-induced pancreatitis. Patient reports that since her hospitalization she has quit drinking. She denies illicit drug use. She denies a history of smoking ALLERGIES: Please see below. REVIEW OF SYSTEMS: 12 point review of systems negative unless otherwise specified in the HPI. HOME MEDICATIONS: Please see below. PHYSICAL EXAMINATION: VITAL SIGNS: Temperature 90 7.9F, pulse 84, respiratory rate 18, blood pressure 131/82 (98), pulse oximetry 99 % on room air. GENERAL APPEARANCE: Patient is awake, alert and oriented in no acute distress sitting upright in the emergency room bed. HEENT: Maxillary and mandibular swelling noted, more prominent on the right than the left. Head is otherwise normocephalic and atraumatic. EOMI, mucous membranes moist, trachea is midline, no subcutaneous emphysema appreciated. Some pupil sw elling appreciated. Patient is able to talk without any significant distress. Patient is satting well on room air CARDIOVASCULAR: Regular rate and rhythm normal S1 and S2 LUNGS: Clear to auscultation bilaterally, no wheezing ABDOMEN: Soft, nontender no masses palpated, no hepatosplenomegaly MUSCULOSKELETAL: Able to move all extremities equally no weakness EXTREMITIES: Peripheral pulses 2+ bilaterally. No lower extremity edema or calf tenderness NEUROLOGICAL: Awake alert and oriented 3. No facial drooping, no focal neurologic deficit PSYCHIATRIC: Mood and affect are appropriate LABORATORY DATA: See below. IMAGING: Neck CT (01/15/19): Soft tissue thickening along the nuchal surface of the right maxilla and anterior body of the right mandible consistent with phlegmon. Chest x-ray (01/15/19): Negative chest x-ray Fiberoptic nasal laryngoscopy (01/15/19): Nasopharynx was clear. Hypopharynx was clear. The vallecula, epiglottis, [place] sinuses both false vocal cords and true vocal cords were unremarkable. No evidence of any swelling at this time. Floor of the mouth and tongue shows no swelling. There is no swelling in the vallecula. 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 Patient presented to the emergency department this morning after noting right- sided facial swelling s/p 11 days taking lisinopril. PLAN: Angioedema -likely 2/2 to lisinopril - Patient received a single unit of FFP while in the emergency department. - IV hydration with normal saline - IV Decadron 10 mg every 8 hours with plan to taper to PO - Diphenhydramine 50 mg when necessary Hypokalemia - Patient received 40 mEq of potassium by mouth and in the emergency department - Potassium level will be followed with daily BMPs. Plan to supplement as necessary Hypertension - 130s/80-90s in ED - Continue to hold Lisinopril Peptic ulcer disease -Plan to continue patient's home medication DVT Prophylaxis: Lovenox 40mg with TEDs Vital Signs Vital Signs Date Time Temp Pulse Resp B/P (MAP) Pulse Ox O2 Delivery O2 Flow Rate FiO2 01/15/19 11:17 84 99 01/15/19 11:15 131/82 (98) 01/15/19 05:48 97.9 18 Room Air Laboratory Data Labs 24H Laboratory Tests 2 01/15/19 06:12: Immature Granulocyte % (Auto) 0.2, White Blood Count 5.5, Red Blood Count 3.85L, Hemoglobin 12.2, Hematocrit 35.7L, Mean Corpuscular Volume 92.7, Mean Corpuscular Hemoglobin 31.7, Mean Corpuscular Hemoglobin Concent 34.2, Red Cell Distribution Width 15.0H, Platelet Count 410, Neutrophils (%) (Auto) 47.5, Lymphocytes (%) (Auto) 42.2, Monocytes (%) (Auto) 7.9H, Eosinophils (%) (Auto) 1.5, Basophils (%) (Auto) 0.7, Neutrophils # (Auto) 2.6, Lymphocytes # (Auto) 2.3, Monocytes # (Auto) 0.4, Eosinophils # (Auto) 0.1, Basophils # (Auto) 0.0, Nucleated Red Blood Cells % (auto) 0.0, Erythrocyte Sedimentation Rate 21H, Anion Gap 11, Glomerular Filtration Rate > 60.0, Calcium Level 9.6, Aspartate Amino Transf (AST/SGOT) 192H, Alanine Aminotransferase (ALT/SGPT) 50, Alkaline Phosphatase 143H, Total Bilirubin 0.4, Direct Bilirubin 0.1, C-Reactive Protein, Quantitative < 0.30, Total Protein 8.5H, Albumin 3.9, Albumin/Globulin Ratio 0.85L, Complement C4 24 CBC/BMP Laboratory Tests 01/15/19 06:12 Red Blood Count 3.85 L, Mean Corpuscular Volume 92.7, Mean Corpuscular Hemoglobin 31.7, Mean Corpuscular Hemoglobin Concent 34.2, Red Cell Distribution Width 15.0 H, Neutrophils (%) (Auto) 47.5, Lymphocytes (%) (Auto) 42.2, Monocytes (%) (Auto) 7.9 H, Eosinophils (%) (Auto) 1.5, Basophils (%) (Auto) 0.7, Neutrophils # (Auto) 2.6, Lymphocytes # (Auto) 2.3, Monocytes # (Auto) 0.4, Eosinophils # (Auto) 0.1, Basophils # (Auto) 0.0 Home Medications Scheduled (Magnesium) 500 Mg Cap, 500 MG PO DAILY Lisinopril (Lisinopril) 10 Mg Tab, 10 MG PO DAILY Allergies Coded Allergies: DEMETRIUS Inhibitors (Verified Allergy, Severe, LISINOPRIL - FACE SWELLING, 01/15/19) MANUEL ODOM DO Jan 15, 2019 12:02
[2019-01-15] MEDS: NS 1,000 ML IV SCH ×2 (12:40→22:56)
[2019-01-15] MEDS: dexameTHASONE 20 MG/5 ML VIAL (J1100) IV SCH ×2 (14:55→22:58)
[2019-01-15] MEDS: ENOXAPARIN 40 MG/0.4 ML SYRINGE (J1650) SC SCH (20:34)
[2019-01-16] VITALS (11 sets, daily range): BP systolic 135–177; BP diastolic 78–110; O2SAT 97–100
[2019-01-16] MEDS ORDERED: diphenhydrAMINE INJ 50MG/ML VIAL (J1200) IV PRN (02:45)
[2019-01-16] MEDS ORDERED: amLODIPine 5 MG TAB PO ONE (03:00)
[2019-01-16 05:07] LABS: HEMOGLOBIN 10.4 g/dl (12.0-15.5); MEAN CORPUSCULAR HEMOGLOBIN 30.8 pg (27.0-33.0); MEAN CORPUSCULAR HGB CONC 33.5 g/dl (32.0-36.5); MEAN CORPUSCULAR VOLUME 91.7 fl (80.0-96.0); PLATELET COUNT, AUTOMATED 339 10^3/uL (150-450); RED BLOOD COUNT 3.38 10^6/uL (4.00-5.40); WHITE BLOOD COUNT 10.6 10^3/uL (4.0-10.0)
[2019-01-16 05:28] LABS: BLOOD UREA NITROGEN 9 MG/DL (7-18); CALCIUM LEVEL 8.7 MG/DL (8.5-10.1); CARBON DIOXIDE LEVEL 22 MEQ/L (21-32); CHLORIDE LEVEL 100 MEQ/L (98-107); GLOMERULAR FILTRATION RATE > 60.0 (>60); GLUCOSE, FASTING 191 MG/DL (70-100); POTASSIUM SERUM 3.4 MEQ/L (3.5-5.1); SODIUM LEVEL 134 MEQ/L (136-145)
[2019-01-16] MEDS: dexameTHASONE 20 MG/5 ML VIAL (J1100) IV SCH ×3 (06:51→22:12)
[2019-01-16] MEDS ORDERED: POTASSIUM CHLORIDE 10 MEQ SR TABLET PO ONE (08:00)
[2019-01-16] MEDS: NS 1,000 ML IV SCH ×2 (08:38→16:36)
[2019-01-16] MEDS: amLODIPine 5 MG TAB PO SCH ×2 (08:39→22:11)
--- NOTE | 2019-01-16 10:46 | IPNPDOC ---
Text Note Date of Service The patient was seen on 01/16/19. NOTE SUBJECTIVE: Floridalma Salinas is a 38-year-old -[place] female who presented to the emergency department complaining of acute onset of right-sided facial swelling s/p 11 days beginning lisinopril hypertension. Patient was interviewed and examined today at bedside. Patient swelling appears decreased compared to yesterday, although he continues to demonstrate some right mandibular and maxillary swelling. Patient reports subjective improvement as well. Patient reports concern regarding her elevated blood pressures overnight. She was reassured that medication would be started with the goal of better blood pressure control. She continues to deny difficulty breathing or swallowing. Patient has been eating solid foods. No chest pain/pressure, no nausea, vomiting, abdominal pain or changes in stooling habits. Been urinating without difficulty. No overnight events on telemetry, no nocturnal decreases and oxygen saturation. PHYSICAL EXAMINATION: VITAL SIGNS: Please see below GENERAL APPEARANCE: Patient is awake, alert and oriented in no acute distress sitting upright in her hospital bed. Swelling appears visibly decreased compared to yesterday HEENT: Maxillary and mandibular swelling noted, slightly improved, more prominent on the right than the left. Head is otherwise normocephalic and atraumatic. EOMI, mucous membranes moist, trachea is midline, no subcutaneous emphysema appreciated. Patient is able to talk without any significant distress. No obvious stridor Patient is saturating well on room air, on continuous pulse ox CARDIOVASCULAR: Regular rate and rhythm normal S1 and S2 LUNGS: Clear to auscultation bilaterally, no wheezing ABDOMEN: Soft, nontender no masses palpated, no hepatosplenomegaly MUSCULOSKELETAL: Able to move all extremities equally no weakness EXTREMITIES: Peripheral pulses 2+ bilaterally. No lower extremity edema or calf tenderness NEUROLOGICAL: Awake alert and oriented 3. No facial drooping, no focal neurologic deficit PSYCHIATRIC: Mood and affect are appropriate LABORATORY DATA: See below. IMAGING: Neck CT (01/15/19): Soft tissue thickening along the nuchal surface of the right maxilla and anterior body of the right mandible consistent with phlegmon. Chest x-ray (01/15/19): Negative chest x-ray Fiberoptic nasal laryngoscopy (01/15/19): Nasopharynx was clear. Hypopharynx was clear. The vallecula, epiglottis, [place] sinuses both false vocal cords and true vocal cords were unremarkable. No evidence of any swelling at this time. Floor of the mouth and tongue shows no swelling. There is no swelling in the vallecula. 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 Patient presented to the emergency department this morning after noting right- sided facial swelling s/p 11 days taking lisinopril. PLAN: Angioedema -likely 2/2 to lisinopril - Patient received a single unit of FFP while in the emergency department. - IV hydration with normal saline - IV Decadron 10 mg every 8 hours with plan to taper to PO - Last evening patient did report an increase in facial swelling swelling beyond the zygomatic arch on the right. She was given 50 mg of IV diphenhydramine with good relief. - Oral, facial swelling this morning appears improved, continue with current management and diphenhydramine 50 mg IV when necessary. Hypokalemia - Potassium level of 3.4 this morning. Patient received 40 mEq of potassium by mouth - Potassium level will be followed with daily BMPs. Plan to supplement as necessary Hypertension - Benign essential hypertension unusual given patient's relatively young age. - 155/93 this morning, single dose of amlodipine 5 mg given - Amlodipine 5 mg by mouth twice a day scheduled - Renal artery ultrasound, metanephrines, renin, ACTH levels pending - Continue to hold Lisinopril Peptic ulcer disease -Plan to continue patient's home medication DVT Prophylaxis: Lovenox 40mg with TEDs VS,Fishbone, I+O VS, Fishbone, I+O Laboratory Tests 01/16/19 04:28 Red Blood Count 3.38 L, Mean Corpuscular Volume 91.7, Mean Corpuscular Hemoglobin 30.8, Mean Corpuscular Hemoglobin Concent 33.5, Red Cell Distribution Width 14.7 H, Calcium Level 8.7 Vital Signs Date Time Temp Pulse Resp B/P (MAP) Pulse Ox O2 Delivery O2 Flow Rate FiO2 01/16/19 08:39 110 135/98 01/16/19 08:00 98.6 18 99 01/16/19 08:00 Room Air I&O- Last 24 Hours up to 6 AM 01/16/19 06:00 Intake Total 2010 ml Output Total 1140 ml Balance 870 ml GME ATTESTATION GME ATTESTATION My faculty preceptor for this patient encounter was physically present during the encounter and was fully available. All aspects of the patient interview, examination, medical decision making process, and medical care plan development were reviewed and approved by the faculty preceptor. The faculty preceptor is aware and concurs with the plan as stated in the body of this note and will attest to such by his/her cosignature. MANUEL ODOM DO Jan 16, 2019 10:46
--- NOTE | 2019-01-16 13:23 | REP ---
RENAL ULTRASOUND WITH DUPLEX DOPPLER RENAL ARTERY EVALUATION: Real-time sonographic evaluation of the kidneys performed. Kidneys are normal in size and echotexture, right kidney measuring 12.1 x 6.2 x 5.5 cm and left kidney 11.6 x 5.1 x 5.7 cm. There is no hydronephrosis, nephrolithiasis, or renal mass bilaterally. Urinary bladder measures 11.4 x 10.1 x 9.6 cm with no mass or calculus. Real-time ultrasound evaluation and duplex Doppler interrogation of the renal arteries is performed bilaterally. Peak systolic velocity of the abdominal aorta at the level of the renal arteries is 74.8 cm/s. Peak systolic velocity of the main right renal artery is 110 cm/s, renal to aortic ratio of 1.47. Resistive indices are measured in the upper, middle, and lower thirds of the right kidney and range between 0.62 and 0.63. Acceleration times range between 0.03 and 0.05. Peak systolic velocity of the main left renal artery is 115 cm/s, renal to aortic ratio is 1.54. Resistive indices left kidney range between 0.57 and 0.61. Acceleration times range between 0.04 and 0.06. IMPRESSION: Negative renal and bladder ultrasound. No compelling duplex Doppler sonographic evidence of significant renal artery stenosis bilaterally. Electronically Signed by Brain De Jesus MD 01/16/2019 07:02 P
[2019-01-16] MEDS: ENOXAPARIN 40 MG/0.4 ML SYRINGE (J1650) SC SCH (22:12)
[2019-01-17] MEDS: NS 1,000 ML IV SCH ×3 (02:32→21:42)
[2019-01-17 05:47] LABS: HEMATOCRIT 32.3 % (36.0-47.0); HEMOGLOBIN 10.9 g/dl (12.0-15.5); MEAN CORPUSCULAR HEMOGLOBIN 31.4 pg (27.0-33.0); MEAN CORPUSCULAR HGB CONC 33.7 g/dl (32.0-36.5); MEAN CORPUSCULAR VOLUME 93.1 fl (80.0-96.0); PLATELET COUNT, AUTOMATED 347 10^3/uL (150-450); RED BLOOD COUNT 3.47 10^6/uL (4.00-5.40); WHITE BLOOD COUNT 14.4 10^3/uL (4.0-10.0)
[2019-01-17 06:00] VITALS: BP 136/94
[2019-01-17 06:06] LABS: BLOOD UREA NITROGEN 6 MG/DL (7-18); CALCIUM LEVEL 8.8 MG/DL (8.5-10.1); CARBON DIOXIDE LEVEL 27 MEQ/L (21-32); CHLORIDE LEVEL 101 MEQ/L (98-107); CREATININE FOR GFR 0.68 MG/DL (0.55-1.30); GLOMERULAR FILTRATION RATE > 60.0 (>60); GLUCOSE, FASTING 115 MG/DL (70-100); POTASSIUM SERUM 3.5 MEQ/L (3.5-5.1); SODIUM LEVEL 135 MEQ/L (136-145)
[2019-01-17] MEDS: dexameTHASONE 20 MG/5 ML VIAL (J1100) IV SCH ×3 (06:25→23:41)
[2019-01-17 07:20] VITALS: O2SAT 100
--- NOTE | 2019-01-17 07:56 | IPNPDOC ---
Date Seen The patient was seen on 01/17/19. Progress Note SUBJECTIVE: Pt was seen and examined at the bedside, chart has been reviewed. no c/o sob or dysphagia. PHYSICAL EXAMINATION: VITAL SIGNS: Please see below GENERAL APPEARANCE: AAOx3, no use of accessory respiratory muscles. NO HOARSE VOICE HEENT: NO STRIDOR. right sided edema decreased swelling no erythema and less tenderness. CARDIOVASCULAR: Regular rate and rhythm normal S1 and S2 LUNGS: Clear to auscultation bilaterally, no wheezing, rales or rhonchi ABDOMEN: Soft,nD, (+) bowel sounds nontender no masses palpated, no hepatosplenomegaly MUSCULOSKELETAL: Able to move all extremities equally no weakness EXTREMITIES: Peripheral pulses 2+ bilaterally.no cyanosis, clubbing or edema LABORATORY DATA: See below. IMAGING: Neck CT (01/15/19): Soft tissue thickening along the nuchal surface of the right maxilla and anterior body of the right mandible consistent with phlegmon. Chest x-ray (01/15/19): Negative chest x-ray Fiberoptic nasal laryngoscopy (01/15/19): Nasopharynx was clear. Hypopharynx was clear. The vallecula, epiglottis, [place] sinuses both false vocal cords and true vocal cords were unremarkable. No evidence of any swelling at this time. Floor of the mouth and tongue shows no swelling. There is no swelling in the vallecula. ASSESSMENT/PLAN:Floridalma Salinas is a 38-year-old -[place] female who presented to the emergency department complaining of acute onset of right-sided facial swelling s/p 11 days beginning lisinopril hypertension. Patient was interviewed and examined today at bedside. Patient swelling appears decreased compared to yesterday, although he continues to demonstrate some right mandibular and maxillary swelling. Patient reports subjective improvement as well. Patient reports concern regarding her elevated blood pressures overnight. She was reassured that medication would be started with the goal of better blood pressure control. She continues to deny difficulty breathing or swallowing. Patient has been eating solid foods. No chest pain/pressure, no nausea, vomiting, abdominal pain or changes in stooling habits. Been urinating without difficulty. DEMETRIUS inhibitor induced Angioedema -no airway obstruction per ENT s/p laryngoscopy in the ER -on IV decadron. -no stridor airway compromise. Hypokalemia,supplemented Hypertension -DEMETRIUS inh to be avoided due to angioedema -currently on norvasc Peptic ulcer disease -Plan to continue patient's home medication DVT Prophylaxis: Lovenox 40mg with TEDs disposition: pending clinical improvement. Friday AM. VS, I&O, 24H, Fishbone Vital Signs/I&O Vital Signs Date Time Temp Pulse Resp B/P (MAP) Pulse Ox O2 Delivery O2 Flow Rate FiO2 01/17/19 06:00 98.1 78 18 136/94 (108) 100 01/16/19 21:30 Room Air I&O- Last 24 Hours up to 6 AM 01/17/19 06:00 Intake Total 1560 ml Output Total 2900 ml Balance -1340 ml Laboratory Data 24H LABS Laboratory Tests 2 01/16/19 08:21: 01/17/19 05:31: Nucleated Red Blood Cells % (auto) 0.0, Anion Gap 7L, Glomerular Filtration Rate > 60.0, Blood Urea Nitrogen 6L, Creatinine 0.68, Sodium Level 135L, Potassium Level 3.5, Chloride Level 101, Carbon Dioxide Level 27, Calcium Level 8.8 CBC/BMP Laboratory Tests 01/17/19 05:31 Red Blood Count 3.47 L, Mean Corpuscular Volume 93.1, Mean Corpuscular Hemoglobin 31.4, Mean Corpuscular Hemoglobin Concent 33.7, Red Cell Distribution Width 14.9 H, Calcium Level 8.8 GINA LEAL MD Jan 17, 2019 07:56
[2019-01-17] MEDS: amLODIPine 5 MG TAB PO SCH ×2 (09:17→20:23)
[2019-01-17 14:00] VITALS: BP 133/91
[2019-01-17 17:40] VITALS: O2SAT 100
[2019-01-17 17:45] VITALS: BP 139/95
[2019-01-17 20:00] VITALS: BP 134/89; O2SAT 100
[2019-01-17] MEDS: ENOXAPARIN 40 MG/0.4 ML SYRINGE (J1650) SC SCH (20:22)
[2019-01-18] VITALS (7 sets, daily range): BP systolic 134–173; BP diastolic 75–103; O2SAT 99–100
[2019-01-18 06:37] LABS: HEMATOCRIT 33.1 % (36.0-47.0); HEMOGLOBIN 11.2 g/dl (12.0-15.5); MEAN CORPUSCULAR HEMOGLOBIN 31.1 pg (27.0-33.0); MEAN CORPUSCULAR HGB CONC 33.8 g/dl (32.0-36.5); MEAN CORPUSCULAR VOLUME 91.9 fl (80.0-96.0); PLATELET COUNT, AUTOMATED 334 10^3/uL (150-450); WHITE BLOOD COUNT 12.4 10^3/uL (4.0-10.0)
[2019-01-18] MEDS: dexameTHASONE 20 MG/5 ML VIAL (J1100) IV SCH ×3 (06:52→23:31)
[2019-01-18 07:02] LABS: BLOOD UREA NITROGEN 8 MG/DL (7-18); CALCIUM LEVEL 8.9 MG/DL (8.5-10.1); CARBON DIOXIDE LEVEL 28 MEQ/L (21-32); CHLORIDE LEVEL 100 MEQ/L (98-107); CREATININE FOR GFR 0.66 MG/DL (0.55-1.30); GLOMERULAR FILTRATION RATE > 60.0 (>60); GLUCOSE, FASTING 101 MG/DL (70-100); POTASSIUM SERUM 3.2 MEQ/L (3.5-5.1); SODIUM LEVEL 136 MEQ/L (136-145)
[2019-01-18] MEDS: NS 1,000 ML IV SCH ×2 (07:28→15:05)
--- NOTE | 2019-01-18 07:32 | IPNPDOC ---
Date Seen The patient was seen on 01/18/19. Progress Note SUBJECTIVE: Pt was seen and examined at the bedside, chart has been reviewed. no c/o sob or dysphagia. No pain. tolerating her diet well without odynophagia. PHYSICAL EXAMINATION: VITAL SIGNS: Please see below GENERAL APPEARANCE: AAOx3, no use of accessory respiratory muscles. NO HOARSE VOICE HEENT: NO STRIDOR. right sided edema decreased swelling no erythema and less tenderness. CARDIOVASCULAR: Regular rate and rhythm normal S1 and S2 LUNGS: Clear to auscultation bilaterally, no wheezing, rales or rhonchi ABDOMEN: Soft,nD, (+) bowel sounds nontender no masses palpated, no hepatosplenomegaly MUSCULOSKELETAL: Able to move all extremities equally no weakness EXTREMITIES: Peripheral pulses 2+ bilaterally.no cyanosis, clubbing or edema LABORATORY DATA: See below. IMAGING: Neck CT (01/15/19): Soft tissue thickening along the nuchal surface of the right maxilla and anterior body of the right mandible consistent with phlegmon. Chest x-ray (01/15/19): Negative chest x-ray Fiberoptic nasal laryngoscopy (01/15/19): Nasopharynx was clear. Hypopharynx was clear. The vallecula, epiglottis, [place] sinuses both false vocal cords and true vocal cords were unremarkable. No evidence of any swelling at this time. Floor of the mouth and tongue shows no swelling. There is no swelling in the vallecula. ASSESSMENT/PLAN:Floridalma Salinas is a 38-year-old -[place] female who presented to the emergency department complaining of acute onset of right-sided facial swelling s/p 11 days beginning lisinopril hypertension. Patient was interviewed and examined today at bedside. Patient swelling appears decreased compared to yesterday, although he continues to demonstrate some right man dibular and maxillary swelling. Patient reports subjective improvement as well. Patient reports concern regarding her elevated blood pressures overnight. She was reassured that medication would be started with the goal of better blood pressure control. She continues to deny difficulty breathing or swallowing. Patient has been eating solid foods. No chest pain/pressure, no nausea, vomiting, abdominal pain or changes in stooling habits. Been urinating without difficulty. DEMETRIUS inhibitor induced Angioedema -no airway obstruction per ENT s/p laryngoscopy in the ER -on IV decadron. -no stridor airway compromise. Hypokalemia,supplemented Hypertension -DEMETRIUS inh to be avoided due to angioedema -currently on norvasc Peptic ulcer disease -Plan to continue patient's home medication DVT Prophylaxis: Lovenox 40mg with TEDs disposition: pending clinical improvement. Friday AM. VS, I&O, 24H, Fishbone Vital Signs/I&O Vital Signs Date Time Temp Pulse Resp B/P (MAP) Pulse Ox O2 Delivery O2 Flow Rate FiO2 01/18/19 04:00 100 Room Air 01/18/19 04:00 99.2 78 18 143/86 (105) I&O- Last 24 Hours up to 6 AM 01/18/19 06:00 Intake Total 1080 ml Output Total 3950 ml Balance -2870 ml Laboratory Data 24H LABS Laboratory Tests 2 01/18/19 06:21: Nucleated Red Blood Cells % (auto) 0.2H, Anion Gap 8, Glomerular Filtration Rate > 60.0, Blood Urea Nitrogen 8, Creatinine 0.66, Sodium Level 136, Potassium Level 3.2L, Chloride Level 100, Carbon Dioxide Level 28, Calcium Level 8.9 CBC/BMP Laboratory Tests 01/18/19 06:21 Red Blood Count 3.60 L, Mean Corpuscular Volume 91.9, Mean Corpuscular Hemoglobin 31.1, Mean Corpuscular Hemoglobin Concent 33.8, Red Cell Distribution Width 14.6 H, Calcium Level 8.9 GINA LEAL MD Jan 18, 2019 07:32
[2019-01-18] MEDS ORDERED: POTASSIUM CHLORIDE 10 MEQ SR TABLET PO ONE (08:00)
[2019-01-18] MEDS: amLODIPine 5 MG TAB PO SCH ×2 (08:20→21:17)
[2019-01-18] MEDS: ENOXAPARIN 40 MG/0.4 ML SYRINGE (J1650) SC SCH (21:17)
[2019-01-19 04:00] VITALS: O2SAT 99
[2019-01-19] MEDS: NS 1,000 ML IV SCH (04:40)
[2019-01-19] MEDS: dexameTHASONE 20 MG/5 ML VIAL (J1100) IV SCH (06:42)
[2019-01-19 07:47] LABS: MEAN CORPUSCULAR HEMOGLOBIN 31.1 pg (27.0-33.0); MEAN CORPUSCULAR HGB CONC 34.2 g/dl (32.0-36.5); MEAN CORPUSCULAR VOLUME 90.9 fl (80.0-96.0); PLATELET COUNT, AUTOMATED 420 10^3/uL (150-450); RED BLOOD COUNT 4.18 10^6/uL (4.00-5.40); WHITE BLOOD COUNT 13.2 10^3/uL (4.0-10.0)
[2019-01-19 07:57] LABS: BLOOD UREA NITROGEN 10 MG/DL (7-18); CALCIUM LEVEL 8.8 MG/DL (8.5-10.1); CARBON DIOXIDE LEVEL 25 MEQ/L (21-32); CHLORIDE LEVEL 99 MEQ/L (98-107); CREATININE FOR GFR 0.79 MG/DL (0.55-1.30); GLOMERULAR FILTRATION RATE > 60.0 (>60); GLUCOSE, FASTING 100 MG/DL (70-100); POTASSIUM SERUM 3.3 MEQ/L (3.5-5.1); SODIUM LEVEL 134 MEQ/L (136-145)
[2019-01-19 08:00] VITALS: BP 165/105
[2019-01-19 08:30] VITALS: BP 145/90
[2019-01-19] MEDS: amLODIPine 5 MG TAB PO SCH ×2 (08:32→21:22)
[2019-01-19] MEDS: PANTOPRAZOLE 40MG TAB (PROTONIX) PO SCH (09:38)
[2019-01-19] MEDS ORDERED: POTASSIUM CHLORIDE 10 MEQ SR TABLET PO ONE (10:00)
[2019-01-19] MEDS: predniSONE 50 MG TAB PO SCH ×2 (14:13→21:21)
[2019-01-19 16:00] VITALS: BP 157/97
--- NOTE | 2019-01-19 16:43 | IPN ---
DATE: 01/19/2019 SUBJECTIVE: Patient is seen and examined in the room today. Patient stated her right facial swelling has been improving. Denies any difficulty with breathing or with swallowing. Denies any fevers or chills. OBJECTIVE: VITAL SIGNS: Temperature is 97.6, pulse is 90, respiratory rate 18, blood pressure 165/105, pulse oximetry is 99% in room air. GENERAL: No sign of acute distress, alert, awake and oriented. HEENT: Some mild right-sided facial swelling. Otherwise, normocephalic, atraumatic. CARDIOVASCULAR: Positive S1, S2, regular rate. LUNGS: Clear to auscultation bilaterally. ABDOMEN: Soft, nontender, nondistended. Bowel sounds present. EXTREMITIES: No edema. LABORATORY DATA: WBC is 13.2, hemoglobin 13, hematocrit 38, platelet count is 420. Sodium is 134, potassium 3.3, chloride 99, carbon dioxide 25, BUN 10, creatinine 0.79, GFR greater than 60, fasting glucose 100, calcium 8.8. ASSESSMENT AND PLAN: 1. Angioedema, suspect secondary to angiotensin-converting enzyme (DEMETRIUS) inhibitor usage. DEMETRIUS inhibitor has been on hold. Patient was evaluated by ears, nose and throat (ENT) previously with laryngoscope. No airway obstructions. Patient shows clinical improvement with IV Decadron. No airway compromise. No difficulty with swallowing. We will start the steroid taper. Patient tolerated the diet well. We will discontinue the IV fluid. 2. Hypertension, currently on Norvasc. Previously, patient was on hydrochlorothiazide and she was switched to DEMETRIUS inhibitor. Currently, we will adjust the Norvasc as needed. 3. Peptic ulcer disease, on Protonix. 4. Hypokalemia. Supplement as needed. 5. Leukocytosis, suspect secondary to the high steroid use. No fever. No chills. No clear sign of infection. Continue to monitor. 6. Deep vein thrombosis (DVT) prophylaxis. Patient is on Lovenox.
[2019-01-19 20:00] VITALS: BP 140/79; O2SAT 97
[2019-01-19] MEDS: ENOXAPARIN 40 MG/0.4 ML SYRINGE (J1650) SC SCH (21:21)
[2019-01-20] VITALS: BP 144/86
[2019-01-20 04:00] VITALS: BP 138/90
[2019-01-20] MEDS: predniSONE 50 MG TAB PO SCH (06:16)
[2019-01-20 07:30] VITALS: BP 139/89
[2019-01-20 07:30] LABS: HEMATOCRIT 34.9 % (36.0-47.0); HEMOGLOBIN 12.1 g/dl (12.0-15.5); MEAN CORPUSCULAR HEMOGLOBIN 30.6 pg (27.0-33.0); MEAN CORPUSCULAR HGB CONC 34.7 g/dl (32.0-36.5); MEAN CORPUSCULAR VOLUME 88.4 fl (80.0-96.0); PLATELET COUNT, AUTOMATED 351 10^3/uL (150-450); RED BLOOD COUNT 3.95 10^6/uL (4.00-5.40); WHITE BLOOD COUNT 12.9 10^3/uL (4.0-10.0)
[2019-01-20 07:56] LABS: BLOOD UREA NITROGEN 11 MG/DL (7-18); CALCIUM LEVEL 8.9 MG/DL (8.5-10.1); CARBON DIOXIDE LEVEL 28 MEQ/L (21-32); CHLORIDE LEVEL 97 MEQ/L (98-107); CREATININE FOR GFR 0.68 MG/DL (0.55-1.30); GLOMERULAR FILTRATION RATE > 60.0 (>60); GLUCOSE, FASTING 91 MG/DL (70-100); POTASSIUM SERUM 3.9 MEQ/L (3.5-5.1); SODIUM LEVEL 133 MEQ/L (136-145)
[2019-01-20 08:35] VITALS: BP 138/90
[2019-01-20] MEDS: amLODIPine 5 MG TAB PO SCH (08:35)
[2019-01-20] MEDS: PANTOPRAZOLE 40MG TAB (PROTONIX) PO SCH (08:35)
[2019-01-20 09:01] VITALS: O2SAT 99
[2019-01-20] MEDS ORDERED: AMLO10TA PO (11:28)
[2019-01-20] MEDS ORDERED: PRED10TA2 PO (11:28)
[2019-01-20] MEDS ORDERED: K-TA10TA2 PO (11:29)
--- NOTE | 2019-01-21 07:08 | DSES ---
DATE OF ADMISSION: 01/15/2019 DATE OF DISCHARGE: 01/20/2019 PRIMARY CARE PROVIDER: Odessa Trice. CONSULTANTS: ENT. DISCHARGE DIAGNOSES: 1. Angioedema secondary to jian inhibitor. 2. Hypertension. 3. Peptic ulcer disease. 4. Hypokalemia. 5. Leukocytosis secondary to steroid use. HOSPITALIZATION COURSE: The patient is a 38-year-old female who presented to [facility] on 01/15/2019 with a complaint of acute onset of right sided facial swelling. In the emergency room, patient received steroids and epinephrine. Patient was admitted under hospitalist service. Patient started on IV support and IV steroids. Patient's blood pressure medication was also adjusted. With steroid achievement, patient's right sided facial swelling gradually showing improvement slowly. Later the steroid was tapered to oral formulation. Patient's blood pressure medication adjusted accordingly. On 01/20/2019, patient is approaching her functional baseline. Patient does not demonstrate any difficulty with swallowing or breathing. Patient determined stable for discharge with recommendation to finish her course of steroid taper. Patient also instructed to followup with primary care provider at [facility] in 1 week. VITAL SIGNS ON DAY OF DISCHARGE: Temperature 97.8, pulse 71, respiration rate 18, blood pressure 139/89, pulse oximetry 99% on room air. LABORATORY DATA: WBC 12.9, hemoglobin 12.1, hematocrit 34.9, platelet count 351. Sodium 133, potassium 3.9, chloride is 97, carbon dioxide 28, BUN 11, creatinine 0.68, glomerular filtration rate greater than 60, fasting glucose 91, calcium 8.9. IMAGING STUDIES: CT of neck with contrast 01/15/2019 showed soft tissue thickening along the buccal surface of the right maxilla and anterior body of the right mandible consistent with phlegmon. Chest x-ray 01/15/2019 showed negative chest x-ray. Renal ultrasound 01/16/2019 demonstrated negative renal and bladder ultrasound. No compelling duplex Doppler sonographic evidence of significant renal artery stenosis bilaterally. DISCHARGE MEDICATION: - amlodipine 10 mg by mouth daily - potassium chloride 20 mEq by mouth daily - prednisone taper - magnesium 500 mg by mouth daily DISCHARGE INSTRUCTIONS: Discharge home. Activity as tolerated. Low salt diet as tolerated. Patient is recommended to finish course of steroid taper. Patient should avoid jian inhibitor in the future. Patient should follow with her primary care provider in 1 week. DISCHARGE CONDITION: Discharge took greater than 30 minutes.
== END 2019-01-20 12:15 | disposition home or self-care (01) | DRG 916 ==
LOC: M ED 05:47 → M ED INP 10:34 → M PCU 13:00 → M MS5PR 01-16 14:10 → M PED 01-17 17:30
PROVIDERS: ADMIT General Practice; ATTEND Internal Medicine
PROC: 30233K1 Transfusion of Nonautologous Frozen Plasma into Peripheral Vein, Percutaneous Approach (ICD-10-PCS; principal; 2019-01-15)
DX: T78.3XXA Angioneurotic edema, initial encounter (principal); T46.4X5A Adverse effect of angiotensin-converting-enzyme inhibitors, initial encounter; E87.6 Hypokalemia; I10 Essential (primary) hypertension; K27.9 Peptic ulcer, site unspecified, unspecified as acute or chronic, without hemorrhage or perforation; D50.9 Iron deficiency anemia, unspecified; Z79.899 Other long term (current) drug therapy

== ENCOUNTER 2019-04-24 03:18 | Inpatient (IN) | payer OTHER ==
[~2019-04-24] VITALS: Ht 172.7 cm; Wt 69.1 kg
[~2019-04-24 03:18] MED LIST changes: +AMLO10TA PO; +LISI10TA4 PO; +MAGN1CAP PO; +PRED10TA2 PO
[2019-04-24] MEDS ORDERED: METOCLOPRAMIDE INJ 10MG/2ML VIAL (J2765) IV ONE (03:30)
[2019-04-24] MEDS ORDERED: NS 1,000 ML IV ONE ×2 (03:30→06:00)
[2019-04-24 03:42] LABS: BASO % 0.3 % (0.0-1.0); HEMATOCRIT 33.9 % (36.0-47.0); HEMOGLOBIN 11.4 g/dl (12.0-15.5); LYMPH # 1.1 10^3/uL (1.5-4.5); LYMPH % 8.3 % (24.0-44.0); MEAN CORPUSCULAR HEMOGLOBIN 33.2 pg (27.0-33.0); MEAN CORPUSCULAR HGB CONC 33.6 g/dl (32.0-36.5); MEAN CORPUSCULAR VOLUME 98.8 fl (80.0-96.0); MONO # 0.6 10^3/uL (0.0-0.8); MONO % 4.5 % (0.0-5.0); NEUTROPHILS # 11.9 10^3/uL (1.8-7.7); NEUTROPHILS % 86.7 % (36.0-66.0); PLATELET COUNT, AUTOMATED 224 10^3/uL (150-450); RED BLOOD COUNT 3.43 10^6/uL (4.00-5.40); WHITE BLOOD COUNT 13.7 10^3/uL (4.0-10.0)
[2019-04-24] MEDS ORDERED: MORPHINE 2 MG/ML 1ML SYRINGE (J2270) IV ONE (04:00)
[2019-04-24 04:07] LABS: HCG, SERUM QUALITATIVE NEGATIVE (NEGATIVE)
[2019-04-24] MEDS ORDERED: MORPHINE 4 MG/ML 1ML VIAL/SYRINGE (J2270) IV ONE ×4 (04:15→08:15)
[2019-04-24 04:24] LABS: ALBUMIN 3.5 GM/DL (3.2-5.2); ALT/SGPT 137 U/L (12-78); BILIRUBIN,DIRECT 0.4 MG/DL (0.0-0.2); BILIRUBIN,TOTAL 0.7 MG/DL (0.2-1.0); BLOOD UREA NITROGEN 5 MG/DL (7-18); CALCIUM LEVEL 8.8 MG/DL (8.5-10.1); CARBON DIOXIDE LEVEL 26 MEQ/L (21-32); CHLORIDE LEVEL 100 MEQ/L (98-107); CREATININE FOR GFR 0.58 MG/DL (0.55-1.30); GLOMERULAR FILTRATION RATE > 60.0 (>60); GLUCOSE, FASTING 128 MG/DL (70-100); POTASSIUM SERUM 3.1 MEQ/L (3.5-5.1); SODIUM LEVEL 140 MEQ/L (136-145); TOTAL PROTEIN 7.6 GM/DL (6.4-8.2)
[2019-04-24] MEDS ORDERED: ISOVUE-370 76% 100ML VIAL (Q9967) As Ordered ONE (04:31)
[2019-04-24] MEDS ORDERED: SERT-155 PO (04:57)
[2019-04-24] MEDS ORDERED: POTA10TA67 PO (04:57)
[2019-04-24] MEDS ORDERED: AMLO10TA5 PO (04:57)
[2019-04-24] MEDS ORDERED: TRAZ1TAB11 PO (04:58)
[2019-04-24] MEDS ORDERED: PRIL20TA2 PO (04:59)
[2019-04-24 05:15] LABS: APPEARANCE, URINE CLOUDY (CLEAR); BACTERIA, URINE AUTO 1+ (NEGATIVE); BILIRUBIN, URINE AUTO NEGATIVE (NEGATIVE); BLOOD, URINE BLOOD NEGATIVE (NEGATIVE); COLOR, URINE YELLOW (YELLOW); GLUCOSE, URINE (UA) AUTO NEGATIVE (NEGATIVE); KETONE, URINE AUTO 1+ mg/dL (NEGATIVE); LEUKOCYTE ESTERASE, URINE AUTO NEGATIVE (NEGATIVE); MUCUS, URINE LARGE (NEGATIVE); NITRITE, URINE AUTO POSITIVE (NEGATIVE); PROTEIN, URINE AUTO 1+ mg/dL (NEGATIVE); RBC, URINE AUTO 11 /HPF (0-3); SPECIFIC GRAVITY URINE AUTO 1.033 (1.002-1.035); SQUAMOUS EPITHELIAL CELL UR AU 10 /HPF (0-6); WBC, URINE AUTO 5 /HPF (0-3)
--- NOTE | 2019-04-24 06:15 | REPVR ---
EXAM: CT Abdomen and Pelvis With Contrast EXAM DATE/TIME: 04/24/2019 4:27 AM CLINICAL HISTORY: 38 years old, female; Abdominal pain; Epigastric; Additional info: Pancreatitis TECHNIQUE: Imaging protocol: Axial computed tomography images of the abdomen and pelvis with intravenous contrast. Coronal and sagittal reformatted images were created and reviewed. Radiation optimization: All CT scans at this facility use at least one of these dose optimization techniques: automated exposure control; mA and/or kV adjustment per patient size (includes targeted exams where dose is matched to clinical indication); or iterative reconstruction. Contrast material: ISO; Contrast volume: 100 ml; Contrast route: AC; COMPARISON: CT ABD/PEL W/IV CONTRAST ONLY 10/01/2018 5:10 PM FINDINGS: Liver: The liver at mid clavicular line measures 16.0 cm. Fatty infiltration of the liver. Gallbladder and bile ducts: There are multiple small gallstones layering in the gallbladder. Pancreas: Peripancreatic fluid and induration with slight prominence of the pancreatic head/uncinate and decreased enhancement of the neck and to a lesser degree body. There is thickening of the anterior pararenal fascia, particularly on the right which is 15 mm thick and extends into the right lateral conal fascia. Spleen: Normal. No splenomegaly. Adrenals: Normal. No mass. Kidneys and ureters: There is a right renal cyst measuring 20 mm. Stomach and bowel: There is slight diffuse colonic wall thickening with collapse or contraction of the distal colon. Appendix: A normal appendix is seen. Intraperitoneal space: Trace perihepatic fluid and minimal free fluid in the pelvis. There is extension of fluid and edema into the omentum. Vasculature: Normal. No abdominal aortic aneurysm. Lymph nodes: Normal. No enlarged lymph nodes. Bladder: Unremarkable as visualized. Reproductive: Status post hysterectomy. Bones/joints: No acute fracture. No dislocation. Soft tissues: Unremarkable. IMPRESSION: 1. Acute interstitial edematous pancreatitis, new since 10/01/2018. 2. Borderline hepatomegaly with fatty infiltration. 3. Minimal free fluid, likely related to pancreatitis. 4. Cholelithiasis with multiple small stones. 5. Minimal nonspecific pancolitis. 6. Status post hysterectomy. Electronically signed by: Richy Garcia On 04/24/2019 06:15:21 AM
[2019-04-24] MEDS ORDERED: POTASSIUM CHLORIDE 10 MEQ SR TABLET PO ONE (06:45)
[2019-04-24] MEDS ORDERED: NS 1,000 ML IV SCH (08:15)
--- NOTE | 2019-04-24 09:38 | HPEPDOC ---
[facility] Medical History & Physical Date of Admission Apr 24, 2019 Date of Service: Apr 24, 2019 History and Physical CHIEF COMPLAINT: Severe Abdominal Pain HISTORY OF PRESENT ILLNESS: Pt is 38 y/o F with known Hx of ETOH use disorder for 15 years, two episodes of pancreatitis in Jul and Sep presented to ED overnight due to severe intractable pain 10/10 in upper quadrants of abdomen with no radiation. Pt also reported nausea and vomiting. No change in BM. Denies any breathing difficulty, dizziness, lightheadedness, syncope. Upon my encounter pt is on youth nutritional monitor in ED, VS WNL, pt is moving in bed due to pain, daughter is at bedside. ED Course: Underwent Abd/CT which revealed acute interstitial edematous pancreas, lipase in . Received IVF NS 2 lit, Morphine 4mg, NPO. PAST MEDICAL HISTORY: 1.Two episodes of acute pancreatitis 2.ETOH use disorder 3.HTN 4.Hypokalemia 5. Iron deficiency anemia PAST SURGICAL HISTORY: 1. Hysterectomy 2. 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 REVIEW OF SYSTEMS: 10 point negative except in HPI HOME MEDICATIONS: Please see below. PHYSICAL EXAMINATION: GENERAL APPEARANCE: awake alert and oriented x3, in severe distress due to pain HEENT: DORIS EOMI no JVD no head trauma CARDIOVASCULAR: S1 S2 no murmur LUNGS: good air entry clear bilat ABDOMEN: soft NT ND no jaundice MUSCULOSKELETAL: no asterixis no tremor no joint deformity EXTREMITIES: no edema no cyanosis no tenderness NEUROLOGICAL: motor sensory intact PSYCHIATRIC: mood affect appropriate LABORATORY DATA: See below. IMAGING: IMPRESSION: 1. Acute interstitial edematous pancreatitis, new since 10/01/2018. 2. Borderline hepatomegaly with fatty infiltration. 3. Minimal free fluid, likely related to pancreatitis. 4. Cholelithiasis with multiple small stones. 5. Minimal nonspecific pancolitis. 6. Status post hysterectomy. MICROBIOLOGY: Please see below. Vital Signs Date Time Temp Pulse Resp B/P (MAP) Pulse Ox O2 Delivery O2 Flow Rate FiO2 04/25/19 14:21 18 04/25/19 08:41 22 04/25/19 06:00 98.3 99 18 129/76 (93) 94 04/25/19 04:43 18 04/25/19 04:33 16 04/24/19 23:02 18 04/24/19 22:00 97.7 94 18 143/89 (107) 96 04/24/19 18:40 18 04/24/19 14:44 18 Intake & Output 04/25/19 06:00 Intake Total 6620 ml Output Total 2900 ml Balance 3720 ml Laboratory Tests 04/25/19 08:43: White Blood Count 14.5H, Red Blood Count 3.36L, Hemoglobin 10.9L, Hematocrit 33.0L, Mean Corpuscular Volume 98.2H, Mean Corpuscular Hemoglobin 32.4, Mean Corpuscular Hemoglobin Concent 33.0, Red Cell Distribution Width 14.0, Platelet Count 223, Neutrophils (%) (Auto) 80.7H, Lymphocytes (%) (Auto) 11.0L, Monocytes (%) (Auto) 7.4H, Eosinophils (%) (Auto) 0.4, Basophils (%) (Auto) 0.2, Neutrophils # (Auto) 11.7H, Lymphocytes # (Auto) 1.6, Monocytes # (Auto) 1.1H, Eosinophils # (Auto) 0.1, Basophils # (Auto) 0.0, Immature Granulocyte % (Auto) 0.3, Nucleated Red Blood Cells % (auto) 0.0, Blood Urea Nitrogen < 1#L, Creatinine 0.47L, Sodium Level 130#L, Potassium Level 4.1#, Chloride Level 99, Carbon Dioxide Level 25, Calcium Level 7.0#L, Aspartate Amino Transf (AST/SGOT) 130H, Alanine Aminotransferase (ALT/SGPT) 73, Alkaline Phosphatase 150H, Total Bilirubin 1.1#H, Total Protein 6.4, Albumin 2.8L, Anion Gap 6L, Glomerular Filtration Rate > 60.0, Fasting Glucose 75, Albumin/Globulin Ratio 0.78L Microbiology 04/24/19 Urine Culture - Final, Complete Current Medications Medications (Trade) Dose Ordered Sig/Pradip Route PRN Reason Start Time Stop Time Status Last Admin Dose Admin Heparin Sodium (Porcine) (Heparin) 5,000 units Q8H SC 04/24/19 14:00 04/25/19 13:09 5,000 UNITS Ketorolac Tromethamine (ToRADol) 30 mg Q6HP PRN IV MODERATE PAIN (PS 5-7) 04/24/19 09:45 04/29/19 09:44 04/25/19 13:15 30 MG Morphine Sulfate (Morphine Sulfate Inj) 6 mg Q3HP PRN IV SEVERE PAIN (PS 8-10) 04/25/19 09:15 04/25/19 14:21 6 MG Pantoprazole Sodium (Protonix) 40 mg Q24H IV 04/24/19 15:00 04/24/19 14:44 40 MG Potassium Chloride/Sodium Chloride 1,000 ml @ 250 mls/hr Q4H IV 04/24/19 11:00 04/25/19 13:15 250 MLS/HR A/P 1-Acute Pancreatitis sec to ETOH use 2-Hypokalemia 3-Transaminitis 4-Hx of recurrent acute pancreatitis 5-Cholelithiasis 6-Hx of PUD 7-HTN 8-Chronic ETOH use Pt is 38 y/o F with known Hx of ETOH use for 15 years and two episodes of acute pancreatitis in Jul. and Sep. who presented to ED with acute RUQ pain. [place] [id number] revealed new interstitial edema in pancreas. Admit to Med/Surg NPO except ice chips IVF resuscitation 40 meq KCL in 1000 ml NS at 250 ml/hr Monitor for electrolytes k, mg, ca, Phos Close clinical monitoring Pain control morphine, ketorolac ANtiemetics PPI Thiamine Folate DVT prophylaxis ETOH counseling Vital Signs Vital Signs Date Time Temp Pulse Resp B/P (MAP) Pulse Ox O2 Delivery O2 Flow Rate FiO2 04/24/19 09:15 91 96 04/24/19 09:00 110/60 (77) 04/24/19 08:54 17 04/24/19 07:15 97.4 04/24/19 06:48 Room Air Laboratory Data Labs 24H Laboratory Tests 2 04/24/19 03:34: Immature Granulocyte % (Auto) 0.2, White Blood Count 13.7H, Red Blood Count 3.43L, Hemoglobin 11.4L, Hematocrit 33.9L, Mean Corpuscular Volume 98.8H, Mean Corpuscular Hemoglobin 33.2H, Mean Corpuscular Hemoglobin Concent 33.6, Red Cell Distribution Width 14.2, Platelet Count 224, Neutrophils (%) (Auto) 86.7H, Lymphocytes (%) (Auto) 8.3L, Monocytes (%) (Auto) 4.5, Eosinophils (%) (Auto) 0.0, Basophils (%) (Auto) 0.3, Neutrophils # (Auto) 11.9H, Lymphocytes # (Auto) 1.1L, Monocytes # (Auto) 0.6, Eosinophils # (Auto) 0.0, Basophils # (Auto) 0.0, Nucleated Red Blood Cells % (auto) 0.0, Anion Gap 14, Glomerular Filtration Rate > 60.0, Calcium Level 8.8, Aspartate Amino Transf (AST/SGOT) 381H, Alanine Aminotransferase (ALT/SGPT) 137H, Alkaline Phosphatase 216H, Total Bilirubin 0.7, Direct Bilirubin 0.4H, Total Protein 7.6, Albumin 3.5, Albumin/Globulin Ratio 0.85L, Lipase [id number], Human Chorionic Gonadotropin, Qual NEGATIVE 04/24/19 04:49: Urine Appearance CLOUDYH, Urine Color YELLOW, Urine pH 6.0, Urine Specific Gr avity 1.033, Urine Protein 1+H, Urine Glucose (UA) NEGATIVE, Urine Ketones 1+H, Urine Urobilinogen 4.0H, Urine Bilirubin NEGATIVE, Urine Leukocyte Esterase NEGATIVE, Urine Blood NEGATIVE, Urine Nitrite POSITIVE, Urine WBC (Auto) 5H, Urine RBC (Auto) 11H, Urine Hyaline Casts (Auto) 0, Urine Bacteria (Auto) 1+H, Urine Squamous Epithelial Cells 10, Urine Mucus (Auto) LARGE, Urine Sperm (Auto) CBC/BMP Laboratory Tests 04/24/19 03:34 Red Blood Count 3.43 L, Mean Corpuscular Volume 98.8 H, Mean Corpuscular Hemoglobin 33.2 H, Mean Corpuscular Hemoglobin Concent 33.6, Red Cell Di stribution Width 14.2, Neutrophils (%) (Auto) 86.7 H, Lymphocytes (%) (Auto) 8.3 L, Monocytes (%) (Auto) 4.5, Eosinophils (%) (Auto) 0.0, Basophils (%) (Auto) 0.3, Neutrophils # (Auto) 11.9 H, Lymphocytes # (Auto) 1.1 L, Monocytes # (Auto) 0.6, Eosinophils # (Auto) 0.0, Basophils # (Auto) 0.0 Microbiology Microbiology 04/24/19 Urine Culture, Received Pending Home Medications Scheduled Amlodipine Besylate (Amlodipine Besylate) 10 Mg Tablet, 10 MG PO DAILY Magnesium Oxide (Magnesium) 500 Mg Cap, 500 MG PO DAILY Omeprazole Magnesium (Prilosec Otc) 20 Mg Tablet.dr, 20 MG PO DAILY Potassium Chloride (Potassium Chloride) 10 Meq Tab.er.prt, 20 MEQ PO DAILY Sertraline HCl (Sertraline HCl) 50 Mg Tablet, 50 MG PO DAILY Trazodone HCl (Trazodone HCl) 50 Mg Tablet, 50 MG PO QPM Allergies Coded Allergies: DEMETRIUS Inhibitors (Verified Allergy, Severe, face swelling-lisinopril, 01/20/19) A-FIB/CHADSVASC A-FIB History Current/History of A-Fib/PAF?: EDUARDO Sanchez MD Apr 24, 2019 09:38
[2019-04-24] MEDS ORDERED: ACETAMINOPHEN TAB 650MG DOSE (2X325MG) PO PRN (09:45)
[2019-04-24] MEDS ORDERED: ONDANSETRON 4MG/2ML VIAL (J2405) IV PRN (09:45)
[2019-04-24] MEDS: KETOROLAC 30 MG/ML VIAL (J1885) IV PRN ×2 (10:35→15:50)
[2019-04-24] MEDS: KCL 40MEQ in NS 1000ML 1,000 ML IV SCH ×4 (11:32→23:52)
[2019-04-24] MEDS: MORPHINE 4 MG/ML 1ML VIAL/SYRINGE (J2270) IV PRN ×4 (11:32→23:02)
[2019-04-24 12:36] VITALS: BP 143/92
[2019-04-24 14:00] VITALS: BP 131/90
[2019-04-24] MEDS: HEPARIN SOD (PORCINE) 5000 UNITS/ML VIAL SC SCH ×2 (14:43→21:08)
[2019-04-24] MEDS: PANTOPRAZOLE 40MG INJ (PROTONIX) (C9113) IV SCH (14:44)
[2019-04-24 22:00] VITALS: BP 143/89
[2019-04-25] MEDS: KCL 40MEQ in NS 1000ML 1,000 ML IV SCH ×6 (04:29→21:34)
[2019-04-25] MEDS: MORPHINE 4 MG/ML 1ML VIAL/SYRINGE (J2270) IV PRN ×4 (04:33→21:33)
[2019-04-25] MEDS: HEPARIN SOD (PORCINE) 5000 UNITS/ML VIAL SC SCH ×3 (05:57→21:32)
[2019-04-25 06:00] VITALS: BP 129/76
[2019-04-25 09:15] LABS: BASO % 0.2 % (0.0-1.0); EOS # 0.1 10^3/uL (0.0-0.50); EOS % 0.4 % (0.0-3.0); HEMOGLOBIN 10.9 g/dl (12.0-15.5); LYMPH # 1.6 10^3/uL (1.5-4.5); MEAN CORPUSCULAR HEMOGLOBIN 32.4 pg (27.0-33.0); MEAN CORPUSCULAR VOLUME 98.2 fl (80.0-96.0); MONO # 1.1 10^3/uL (0.0-0.8); MONO % 7.4 % (0.0-5.0); NEUTROPHILS # 11.7 10^3/uL (1.8-7.7); NEUTROPHILS % 80.7 % (36.0-66.0); PLATELET COUNT, AUTOMATED 223 10^3/uL (150-450); RED BLOOD COUNT 3.36 10^6/uL (4.00-5.40); WHITE BLOOD COUNT 14.5 10^3/uL (4.0-10.0)
[2019-04-25 09:41] LABS: ALBUMIN 2.8 GM/DL (3.2-5.2); ALT/SGPT 73 U/L (12-78); BILIRUBIN,TOTAL 1.1 MG/DL (0.2-1.0); BLOOD UREA NITROGEN < 1 MG/DL (7-18); CARBON DIOXIDE LEVEL 25 MEQ/L (21-32); CHLORIDE LEVEL 99 MEQ/L (98-107); CREATININE FOR GFR 0.47 MG/DL (0.55-1.30); GLOMERULAR FILTRATION RATE > 60.0 (>60); GLUCOSE, FASTING 75 MG/DL (70-100); POTASSIUM SERUM 4.1 MEQ/L (3.5-5.1); SODIUM LEVEL 130 MEQ/L (136-145); TOTAL PROTEIN 6.4 GM/DL (6.4-8.2)
[2019-04-25] MEDS: KETOROLAC 30 MG/ML VIAL (J1885) IV PRN (13:15)
[2019-04-25 14:00] VITALS: BP 147/98
--- NOTE | 2019-04-25 14:32 | IPNPDOC ---
Text Note Date of Service The patient was seen on 04/25/19. NOTE Pt was seen and examined at bedside. Pt is in severe abdominal pain. pain meds moderately control the pain. NPO except ice chips. Denies any N/V. hemodynamically stable. PHE: GENERAL APPEARANCE: awake alert and oriented x3, in severe distress due to pain HEENT: DORIS EOMI no JVD no head trauma CARDIOVASCULAR: S1 S2 no murmur LUNGS: good air entry clear bilat ABDOMEN: soft NT ND no jaundice MUSCULOSKELETAL: no asterixis no tremor no joint deformity EXTREMITIES: no edema no cyanosis no tenderness NEUROLOGICAL: motor sensory intact PSYCHIATRIC: mood affect appropriate Vital Signs Date Time Temp Pulse Resp B/P (MAP) Pulse Ox O2 Delivery O2 Flow Rate FiO2 04/25/19 14:21 18 04/25/19 08:41 22 04/25/19 06:00 98.3 99 18 129/76 (93) 94 04/25/19 04:43 18 04/25/19 04:33 16 04/24/19 23:02 18 04/24/19 22:00 97.7 94 18 143/89 (107) 96 04/24/19 18:40 18 04/24/19 14:44 18 Intake & Output 04/25/19 06:00 Intake Total 6620 ml Output Total 2900 ml Balance 3720 ml Laboratory Tests 04/25/19 08:43: White Blood Count 14.5H, Red Blood Count 3.36L, Hemoglobin 10.9L, Hematocrit 33.0L, Mean Corpuscular Volume 98.2H, Mean Corpuscular Hemoglobin 32.4, Mean Corpuscular Hemoglobin Concent 33.0, Red Cell Distribution Width 14.0, Platelet Count 223, Neutrophils (%) (Auto) 80.7H, Lymphocytes (%) (Auto) 11.0L, Monocytes (%) (Auto) 7.4H, Eosinophils (%) (Auto) 0.4, Basophils (%) (Auto) 0.2, Neutrophils # (Auto) 11.7H, Lymphocytes # (Auto) 1.6, Monocytes # (Auto) 1.1H, Eosinophils # (Auto) 0.1, Basophils # (Auto) 0.0, Immature Granulocyte % (Auto) 0.3, Nucleated Red Blood Cells % (auto) 0.0, Blood Urea Nitrogen < 1#L, Crea tinine 0.47L, Sodium Level 130#L, Potassium Level 4.1#, Chloride Level 99, Carbon Dioxide Level 25, Calcium Level 7.0#L, Aspartate Amino Transf (AST/SGOT) 130H, Alanine Aminotransferase (ALT/SGPT) 73, Alkaline Phosphatase 150H, Total Bilirubin 1.1#H, Total Protein 6.4, Albumin 2.8L, Anion Gap 6L, Glomerular Filtration Rate > 60.0, Fasting Glucose 75, Albumin/Globulin Ratio 0.78L Microbiology 04/24/19 Urine Culture - Final, Complete Current Medications Medications (Trade) Dose Ordered Sig/Pradip Route PRN Reason Start Time Stop Time Status Last Admin Dose Admin Heparin Sodium (Porcine) (Heparin) 5,000 units Q8H SC 04/24/19 14:00 04/25/19 13:09 5,000 UNITS Ketorolac Tromethamine (ToRADol) 30 mg Q6HP PRN IV MODERATE PAIN (PS 5-7) 04/24/19 09:45 04/29/19 09:44 04/25/19 13:15 30 MG Morphine Sulfate (Morphine Sulfate Inj) 6 mg Q3HP PRN IV SEVERE PAIN (PS 8-10) 04/25/19 09:15 04/25/19 14:21 6 MG Pantoprazole Sodium (Protonix) 40 mg Q24H IV 04/24/19 15:00 04/24/19 14:44 40 MG Potassium Chloride/Sodium Chloride 1,000 ml @ 250 mls/hr Q4H IV 04/24/19 11:00 04/25/19 13:15 250 MLS/HR A/P 1-Acute Pancreatitis sec to ETOH use 2-Hypokalemia 3-Transaminitis 4-Hx of recurrent acute pancreatitis 5-Cholelithiasis 6-Hx of PUD 7-HTN 8-Chronic ETOH use 9-Hyponatremia Pt is 38 y/o F with known Hx of ETOH use for 15 years and two episodes of acute pancreatitis in Jul. and Sep. who presented to ED with acute RUQ pain. On admiss ion lipase found to be and Abd CT revealed new interstitial edema in pancreas. Admit to Med/Surg Cont NPO except ice chips, pt still in severe pain, would not advance diet at this point IVF resuscitation 40 meq KCL in 1000 ml NS at 250 ml/hr Monitor for electrolytes k, mg, ca, Phos Close clinical monitoring Pain control morphine, ketorolac ANtiemetics PPI Thiamine Folate DVT prophylaxis ETOH counseling VS,Fishbone, I+O VS, Fishbone, I+O Laboratory Tests 04/25/19 08:43 Red Blood Count 3.36 L, Mean Corpuscular Volume 98.2 H, Mean Corpuscular Hemoglobin 32.4, Mean Corpuscular Hemoglobin Concent 33.0, Red Cell Distribution Width 14.0, Neutrophils (%) (Auto) 80.7 H, Lymphocytes (%) (Auto) 11.0 L, Monocytes (%) (Auto) 7.4 H, Eosinophils (%) (Auto) 0.4, Basophils (%) (Auto) 0.2, Neutrophils # (Auto) 11.7 H, Lymphocytes # (Auto) 1.6, Monocytes # (Auto) 1.1 H, Eosinophils # (Auto) 0.1, Basophils # (Auto) 0.0, Calcium Level 7.0 #L, Aspartate Amino Transf (AST/SGOT) 130 H, Alanine Aminotransferase (ALT/SGPT) 73, Alkaline Phosphatase 150 H, Total Bilirubin 1.1 #H, Total Protein 6.4, Albumin 2.8 L Vital Signs Date Time Temp Pulse Resp B/P (MAP) Pulse Ox O2 Delivery O2 Flow Rate FiO2 04/25/19 14:21 18 04/25/19 06:00 98.3 99 129/76 (93) 94 04/24/19 12:31 Room Air I&O- Last 24 Hours up to 6 AM 04/25/19 06:00 Intake Total 6620 ml Output Total 2900 ml Balance 3720 ml EDUARDO MONTOYA MD Apr 25, 2019 14:32
[2019-04-25] MEDS: PANTOPRAZOLE 40MG INJ (PROTONIX) (C9113) IV SCH (16:48)
[2019-04-25] MEDS: SODIUM CHLORIDE 1 GM TAB PO SCH ×2 (17:45→21:32)
[2019-04-25] MEDS: FOLIC ACID 1 MG in NS 50 ML IV SCH (17:45)
[2019-04-25] MEDS: THIAMINE HCL 200 MG/2 ML VIAL (J3411) IV SCH (17:46)
[2019-04-25 22:00] VITALS: BP 134/97
[2019-04-26] MEDS: KETOROLAC 30 MG/ML VIAL (J1885) IV PRN ×2 (00:37→08:05)
[2019-04-26] MEDS: KCL 40MEQ in NS 1000ML 1,000 ML IV SCH ×5 (01:44→21:39)
[2019-04-26] MEDS: HEPARIN SOD (PORCINE) 5000 UNITS/ML VIAL SC SCH ×3 (05:31→21:40)
[2019-04-26] MEDS: MORPHINE 4 MG/ML 1ML VIAL/SYRINGE (J2270) IV PRN ×4 (05:58→21:40)
[2019-04-26 06:00] VITALS: BP 126/91
[2019-04-26 06:09] LABS: APPEARANCE, URINE CLEAR (CLEAR); BACTERIA, URINE AUTO NEGATIVE (NEGATIVE); BILIRUBIN, URINE AUTO NEGATIVE (NEGATIVE); BLOOD, URINE BLOOD NEGATIVE (NEGATIVE); COLOR, URINE YELLOW (YELLOW); GLUCOSE, URINE (UA) AUTO NEGATIVE (NEGATIVE); KETONE, URINE AUTO 1+ mg/dL (NEGATIVE); LEUKOCYTE ESTERASE, URINE AUTO 1+ (NEGATIVE); MUCUS, URINE SMALL (NEGATIVE); NITRITE, URINE AUTO NEGATIVE (NEGATIVE); PROTEIN, URINE AUTO NEGATIVE (NEGATIVE); RBC, URINE AUTO 5 /HPF (0-3); SPECIFIC GRAVITY URINE AUTO 1.008 (1.002-1.035); SQUAMOUS EPITHELIAL CELL UR AU 1 /HPF (0-6); WBC, URINE AUTO 5 /HPF (0-3)
[2019-04-26 06:21] LABS: BASO % 0.2 % (0.0-1.0); EOS # 0.1 10^3/uL (0.0-0.50); EOS % 0.7 % (0.0-3.0); HEMATOCRIT 31.7 % (36.0-47.0); HEMOGLOBIN 10.7 g/dl (12.0-15.5); LYMPH # 1.3 10^3/uL (1.5-4.5); LYMPH % 10.3 % (24.0-44.0); MEAN CORPUSCULAR HEMOGLOBIN 32.7 pg (27.0-33.0); MEAN CORPUSCULAR HGB CONC 33.8 g/dl (32.0-36.5); MEAN CORPUSCULAR VOLUME 96.9 fl (80.0-96.0); MONO # 1.8 10^3/uL (0.0-0.8); MONO % 13.7 % (0.0-5.0); NEUTROPHILS # 9.5 10^3/uL (1.8-7.7); NEUTROPHILS % 74.2 % (36.0-66.0); PLATELET COUNT, AUTOMATED 240 10^3/uL (150-450); RED BLOOD COUNT 3.27 10^6/uL (4.00-5.40); WHITE BLOOD COUNT 12.8 10^3/uL (4.0-10.0)
[2019-04-26 06:47] LABS: ALBUMIN 2.5 GM/DL (3.2-5.2); ALT/SGPT 56 U/L (12-78); BILIRUBIN,TOTAL 1.1 MG/DL (0.2-1.0); BLOOD UREA NITROGEN < 1 MG/DL (7-18); CALCIUM LEVEL 7.1 MG/DL (8.5-10.1); CARBON DIOXIDE LEVEL 22 MEQ/L (21-32); CHLORIDE LEVEL 100 MEQ/L (98-107); CREATININE FOR GFR 0.43 MG/DL (0.55-1.30); GLOMERULAR FILTRATION RATE > 60.0 (>60); GLUCOSE, FASTING 64 MG/DL (70-100); MAGNESIUM LEVEL 0.9 MG/DL (1.8-2.4); PHOSPHORUS LEVEL 1.1 MG/DL (2.5-4.9); POTASSIUM SERUM 4.2 MEQ/L (3.5-5.1); SODIUM LEVEL 132 MEQ/L (136-145); TOTAL PROTEIN 5.9 GM/DL (6.4-8.2)
[2019-04-26] MEDS: MAG SULF 1GM/100ML (MAG RUN) 1 GM in APPROPRIATE DILUENT 1 EA IV SCH ×2 (07:57→09:20)
--- NOTE | 2019-04-26 07:58 | IPNPDOC ---
Text Note Date of Service The patient was seen on 04/26/19. NOTE Pt was seen and examined at bedside. Pt refers her abdomen pain is improved now, not completely resolved. Denies any N/V. IVF 250 ml/hr will decrease rate today. Will advance diet monitor clinically if pt able to tolerate. PHE: GENERAL APPEARANCE: awake alert and oriented x3, in severe distress due to pain HEENT: DORIS EOMI no JVD no head trauma CARDIOVASCULAR: S1 S2 no murmur LUNGS: good air entry clear bilat ABDOMEN: soft NT ND no jaundice MUSCULOSKELETAL: no asterixis no tremor no joint deformity EXTREMITIES: no edema no cyanosis no tenderness NEUROLOGICAL: motor sensory intact PSYCHIATRIC: mood affect appropriate Vital Signs Date Time Temp Pulse Resp B/P (MAP) Pulse Ox O2 Delivery O2 Flow Rate FiO2 04/26/19 06:08 18 04/26/19 06:00 97.5 91 18 126/91 (103) 96 04/26/19 05:58 18 04/25/19 22:00 98.7 95 20 134/97 (109) 96 04/25/19 21:33 18 04/25/19 14:21 18 04/25/19 14:00 97.2 100 18 147/98 (114) 99 04/25/19 08:41 22 Intake & Output 04/26/19 05:59 Intake Total 6150 ml Output Total 3300 ml Balance 2850 ml Laboratory Tests 04/25/19 08:43: White Blood Count 14.5H, Red Blood Count 3.36L, Hemoglobin 10.9L, Hematocrit 33.0L, Mean Corpuscular Volume 98.2H, Mean Corpuscular Hemoglobin 32.4, Mean Cor puscular Hemoglobin Concent 33.0, Red Cell Distribution Width 14.0, Platelet Count 223, Neutrophils (%) (Auto) 80.7H, Lymphocytes (%) (Auto) 11.0L, Monocytes (%) (Auto) 7.4H, Eosinophils (%) (Auto) 0.4, Basophils (%) (Auto) 0.2, Neutrophils # (Auto) 11.7H, Lymphocytes # (Auto) 1.6, Monocytes # (Auto) 1.1H, Eosinophils # (Auto) 0.1, Basophils # (Auto) 0.0, Immature Granulocyte % (Auto) 0.3, Nucleated Red Blood Cells % (auto) 0.0, Blood Urea Nitrogen < 1#L, Creatinine 0.47L, Sodium Level 130#L, Potassium Level 4.1#, Chloride Level 99, Carbon Dioxide Level 25, Calcium Level 7.0#L, Aspartate Amino Transf (AST/SGOT) 130H, Alanine Aminotransferase (ALT/SGPT) 73, Alkaline Phosphatase 150H, Total Bilirubin 1.1#H, Total Protein 6.4, Albumin 2.8L, Anion Gap 6L, Glomerular Filtration Rate > 60.0, Fasting Glucose 75, Albumin/Globulin Ratio 0.78L 04/26/19 05:30: White Blood Count 12.8H, Red Blood Count 3.27L, Hemoglobin 10.7L, Hematocrit 31.7L, Mean Corpuscular Volume 96.9H, Mean Corpuscular Hemoglobin 32.7, Mean Corpuscular Hemoglobin Concent 33.8, Red Cell Distribution Width 13.4, Platelet Count 240, Neutrophils (%) (Auto) 74.2H, Lymphocytes (%) (Auto) 10.3L, Monocytes (%) (Auto) 13.7H, Eosinophils (%) (Auto) 0.7, Basophils (%) (Auto) 0.2, Neutrophils # (Auto) 9.5H, Lymphocytes # (Auto) 1.3L, Monocytes # (Auto) 1.8H, Eosinophils # (Auto) 0.1, Basophils # (Auto) 0.0, Immature Granulocyte % (Auto) 0.9, Nucleated Red Blood Cells % (auto) 0.0, Blood Urea Nitrogen < 1L, C reatinine 0.43L, Sodium Level 132L, Potassium Level 4.2, Chloride Level 100, Carbon Dioxide Level 22, Calcium Level 7.1L, Aspartate Amino Transf (AST/SGOT) 94H, Alanine Aminotransferase (ALT/SGPT) 56, Alkaline Phosphatase 149H, Total Bilirubin 1.1H, Total Protein 5.9L, Albumin 2.5L, Anion Gap 10, Glomerular Filtration Rate > 60.0, Fasting Glucose 64L, Albumin/Globulin Ratio 0.74L, Phosphorus Level 1.1L, Magnesium Level 0.9*L 04/26/19 05:48: Urine Appearance CLEAR, Urine Color YELLOW, Urine pH 7.0, Urine Specific [place] 1.008, Urine Protein NEGATIVE, Urine Glucose (UA) NEGATIVE, Urine Ketones 1+H, Urine Urobilinogen 2.0H, Urine Bilirubin NEGATIVE, Urine Leukocyte Esterase 1+H, Urine Blood NEGATIVE, Urine Nitrite NEGATIVE, Urine WBC (Auto) 5H, Urine RBC (Auto) 5H, Urine Hyaline Casts (Auto) 0, Urine Bacteria (Auto) NEGATIVE, Urine Squamous Epithelial Cells 1, Urine Mucus (Auto) SMALL, Urine Sperm (Auto) Microbiology 04/24/19 Urine Culture - Final, Complete Current Medications Medications (Trade) Dose Ordered Sig/Pradip Route PRN Reason Start Time Stop Time Status Last Admin Dose Admin Folic Acid 1 mg/ Sodium Chloride 50.2 ml @ 100.4 mls/ hr Q24H IV 04/25/19 18:00 04/25/19 17:45 100.4 MLS/HR Heparin Sodium (Porcine) (Heparin) 5,000 units Q8H SC 04/24/19 14:00 04/26/19 05:31 5,000 UNITS Ketorolac Tromethamine (ToRADol) 30 mg Q6HP PRN IV MODERATE PAIN (PS 5-7) 04/24/19 09:45 04/29/19 09:44 04/26/19 00:37 30 MG Morphine Sulfate (Morphine Sulfate Inj) 6 mg Q3HP PRN IV SEVERE PAIN (PS 8-10) 04/25/19 09:15 04/26/19 05:58 6 MG Pantoprazole Sodium (Protonix) 40 mg Q24H IV 04/24/19 15:00 04/25/19 16:48 40 MG Potassium Chloride/Sodium Chloride 1,000 ml @ 250 mls/hr Q4H IV 04/24/19 11:00 04/26/19 05:57 250 MLS/HR Sodium Chloride (Sodium Chloride) 1 gm TID PO 04/25/19 16:00 04/25/19 21:32 1 GM Thiamine HCl (VITAMIN B1 INJection) 100 mg DAILY@1800 IV 04/25/19 18:00 04/25/19 17:46 100 MG A/P 1-Acute Pancreatitis sec to ETOH use 2-Hypokalemia 3-Transaminitis 4-Hx of recurrent acute pancreatitis 5-Cholelithiasis 6-Hx of PUD 7-HTN 8-ETOH use disorder 9-Hyponatremia Pt is 38 y/o F with known Hx of ETOH use for 15 years and two episodes of acute pancreatitis in Jul. and Dec. who presented to ED with acute RUQ pain. [place] [id number] revealed new interstitial edema in pancreas. Admit to Med/Surg Advance diet today IVF resuscitation 40 meq KCL in 1000 ml NS decrease to 150 ml/hr Monitor for electrolytes k, mg, ca, Phos Close clinical monitoring Pain control morphine, ketorolac Antiemetics PPI Thiamine Folate DVT prophylaxis ETOH counseling VS,Fishbone, I+O VS, Fishbone, I+O Laboratory Tests 04/25/19 08:43 Red Blood Count 3.36 L, Mean Corpuscular Volume 98.2 H, Mean Corpuscular Hemoglobin 32.4, Mean Corpuscular Hemoglobin Concent 33.0, Red Cell Distribution Width 14.0, Neutrophils (%) (Auto) 80.7 H, Lymphocytes (%) (Auto) 11.0 L, Monocytes (%) (Auto) 7.4 H, Eosinophils (%) (Auto) 0.4, Basophils (%) (Auto) 0.2, Neutrophils # (Auto) 11.7 H, Lymphocytes # (Auto) 1.6, Monocytes # (Auto) 1.1 H, Eosinophils # (Auto) 0.1, Basophils # (Auto) 0.0, Calcium Level 7.0 #L, Aspartate Amino Transf (AST/SGOT) 130 H, Alanine Aminotransferase (ALT/SGPT) 73, Alkaline Phosphatase 150 H, Total Bilirubin 1.1 #H, Total Protein 6.4, Albumin 2.8 L 04/26/19 05:30 Red Blood Count 3.27 L, Mean Corpuscular Volume 96.9 H, Mean Corpuscular Hemoglobin 32.7, Mean Corpuscular Hemoglobin Concent 33.8, Red Cell Distribution Width 13.4, Neutrophils (%) (Auto) 74.2 H, Lymphocytes (%) (Auto) 10.3 L, Monocytes (%) (Auto) 13.7 H, Eosinophils (%) (Auto) 0.7, Basophils (%) (Auto) 0.2, Neutrophils # (Auto) 9.5 H, Lymphocytes # (Auto) 1.3 L, Monocytes # (Auto) 1.8 H, Eosinophils # (Auto) 0.1, Basophils # (Auto) 0.0, Calcium Level 7.1 L, Aspartate Amino Transf (AST/SGOT) 94 H, Alanine Aminotransferase (ALT/SGPT) 56, Alkaline Phosphatase 149 H, Total Bilirubin 1.1 H, Total Protein 5.9 L, Albumin 2.5 L, Phosphorus Level 1.1 L Vital Signs Date Time Temp Pulse Resp B/P (MAP) Pulse Ox O2 Delivery O2 Flow Rate FiO2 04/26/19 06:08 18 04/26/19 06:00 97.5 91 126/91 (103) 96 04/24/19 12:31 Room Air I&O- Last 24 Hours up to 6 AM 04/26/19 05:59 Intake Total 6150 ml Output Total 3300 ml Balance 2850 ml EDUARDO MONTOYA MD Apr 26, 2019 07:58
[2019-04-26] MEDS: SODIUM CHLORIDE 1 GM TAB PO SCH ×3 (08:05→21:40)
[2019-04-26 14:00] VITALS: BP 134/84
[2019-04-26] MEDS: PANTOPRAZOLE 40MG INJ (PROTONIX) (C9113) IV SCH (15:07)
[2019-04-26] MEDS: THIAMINE HCL 200 MG/2 ML VIAL (J3411) IV SCH (17:24)
[2019-04-26] MEDS: FOLIC ACID 1 MG in NS 50 ML IV SCH (17:26)
[2019-04-26 22:00] VITALS: BP 138/90
[2019-04-26] MEDS ORDERED: GLUCAGON FOR INJ 1 MG VIAL (J1610) SC PRN (22:00)
[2019-04-26] MEDS ORDERED: DEXTROSE 50% 50 ML SYRINGE IV PRN (22:00)
[2019-04-26] MEDS ORDERED: GLUCOSE 4 GM CHEW TABLET PO PRN (22:00)
[2019-04-27] MEDS: KCL 40MEQ in NS 1000ML 1,000 ML IV SCH ×4 (01:49→14:00)
[2019-04-27] MEDS: KETOROLAC 30 MG/ML VIAL (J1885) IV PRN (02:58)
[2019-04-27] MEDS: HEPARIN SOD (PORCINE) 5000 UNITS/ML VIAL SC SCH ×4 (05:22→21:17)
[2019-04-27 06:00] VITALS: BP 125/84
[2019-04-27 06:18] LABS: HEMATOCRIT 31.5 % (36.0-47.0); HEMOGLOBIN 10.7 g/dl (12.0-15.5); MEAN CORPUSCULAR HEMOGLOBIN 34.4 pg (27.0-33.0); MEAN CORPUSCULAR VOLUME 101.3 fl (80.0-96.0); PLATELET COUNT, AUTOMATED 267 10^3/uL (150-450); RED BLOOD COUNT 3.11 10^6/uL (4.00-5.40); WHITE BLOOD COUNT 10.9 10^3/uL (4.0-10.0)
[2019-04-27] MEDS ORDERED: MORPHINE 4 MG/ML 1ML VIAL/SYRINGE (J2270) IV PRN ×2 (06:30→09:00)
[2019-04-27 06:46] LABS: EOSINOPHILS 2 % (0-5); LYMPHOCYTES 9 % (16-52); MONOCYTES 13 % (0-8); NEUTROPHILS 76 % (35-75); PLATELET ESTIMATE NORMAL (NORMAL)
[2019-04-27 06:47] LABS: POLYCHROMASIA 1+
[2019-04-27 06:54] LABS: BLOOD UREA NITROGEN < 1 MG/DL (7-18); CALCIUM LEVEL 7.7 MG/DL (8.5-10.1); CARBON DIOXIDE LEVEL 20 MEQ/L (21-32); CHLORIDE LEVEL 104 MEQ/L (98-107); CREATININE FOR GFR 0.48 MG/DL (0.55-1.30); GLOMERULAR FILTRATION RATE > 60.0 (>60); GLUCOSE, FASTING 87 MG/DL (70-100); LIPASE 700 U/L (73-393); MAGNESIUM LEVEL 1.8 MG/DL (1.8-2.4); POTASSIUM SERUM 4.5 MEQ/L (3.5-5.1); SODIUM LEVEL 133 MEQ/L (136-145)
[2019-04-27] MEDS ORDERED: SODIUM PHOSPHATE INJ 30 MMOL in D5W 500 ML IV ONE (07:30)
[2019-04-27] MEDS: SODIUM CHLORIDE 1 GM TAB PO SCH (08:29)
[2019-04-27] MEDS ORDERED: PERCOCET 5MG/325MG TAB PO PRN (09:00)
--- NOTE | 2019-04-27 09:04 | IPNPDOC ---
Subjective Date Seen The patient was seen on 04/27/19. Subjective Chief Complaint/HPI continues to have epigastric and central abdominal pain still needing IV morphine. However has started to feel hungry and asking to advance diet. Passing gas but no bowel movement since admission, no fever or chills. Objective Physical Examination General Exam: Positive: Alert, Cooperative, No Acute Distress Eye Exam: Positive: PERRLA, Conjunctiva & lids normal, EOMI; Negative: Sclera icteric ENT Exam: Positive: Atraumatic, Mucous membr. moist/pink, Pharynx Normal Neck Exam: Positive: Supple; Negative: JVD, thyromegaly Chest Exam: Positive: Clear to auscultation, Normal air movement Heart Exam: Positive: Rate Normal, Regular Rhythm, Normal S1, Normal S2; Negative: Murmurs, Rubs Abdomen Exam: Positive: Normal bowel sounds, Soft, Tenderness (in the central abdomen and epigastrium), Other (rebound tenderness present. No guarding or rigidity) Extremity Exam: Negative: Clubbing, Cyanosis, Edema Skin Exam: Positive: Nl turgor and temperature; Negative: Rash, Breakdown Assessment /Plan Assessment Acute Pancreatitis due to alcohol abuse last drink on 04/23/19 The patient continues to have pain consistent with pancreatitis, and an elevated lipase level of greater than 20 thousand on presentation. Now improved. CT Abd/pel with Acute interstitial edematous pancreatitis. Borderline hepatomegaly with fatty infiltration. Minimal free fluid, likely related to pancreatitis. Cholelithiasis with multiple small stones. But no CBD obstruction. LFTs are improving. We will provide the patient with IVF hydration, pain control, anti-emetic therapy start switching from IV pain meds to percocet advance diet to Full liquids. Hypomagnesemia due to alcohol abuse replaced. Hypophosphatemia will continue replacement Hypokalemia replaced Elevated LFTs due to alcoholic hepatitis and fatty liver No CBD obstruction seen in CT scan. Lfts improving We will order an MRCP for further delineation of bile duct, and to r/o choledocholithiasis if LFTs rise again. Alcohol Abuse Patient reports that her last alcoholic beverage was on 04/23/19 Patient counseled to quit. We will cont to monitor HTN, stable amlodipine GERD Cont PPI Insomnia/ depression home meds when able to take po meds Plan/VTE VTE Prophylaxis Ordered?: Yes VS, I&O, 24H, Fishbone Vital Signs/I&O Vital Signs Date Time Temp Pulse Resp B/P (MAP) Pulse Ox O2 Delivery O2 Flow Rate FiO2 04/26/19 22:00 99.2 94 16 138/90 (106) 99 04/24/19 12:31 Room Air I&O- Last 24 Hours up to 6 AM 04/27/19 06:00 Intake Total 4810.2 ml Output Total 4850 ml Balance -39.8 ml Laboratory Data 24H LABS Laboratory Tests 2 04/26/19 05:30: Immature Granulocyte % (Auto) 0.9, White Blood Count 12.8H, Red Blood Count 3.27L, Hemoglobin 10.7L, Hematocrit 31.7L, Mean Corpuscular Volume 96.9H, Mean Corpuscular Hemoglobin 32.7, Mean Corpuscular Hemoglobin Concent 33.8, Red Cell Distribution Width 13.4, Platelet Count 240, Neutrophils (%) (Auto) 74.2H, Lymphocytes (%) (Auto) 10.3L, Monocytes (%) (Auto) 13.7H, Eosinophils (%) (Auto) 0.7, Basophils (%) (Auto) 0.2, Neutrophils # (Auto) 9.5H, Lymphocytes # (Auto) 1.3L, Monocytes # (Auto) 1.8H, Eosinophils # (Auto) 0.1, Basophils # (Auto) 0.0, Nucleated Red Blood Cells % (auto) 0.0, Anion Gap 10, Glomerular Filtration Rate > 60.0, Blood Urea Nitrogen < 1L, Creatinine 0.43L, Sodium Level 132L, Potassium Level 4.2, Chloride Level 100, Carbon Dioxide Level 22, Calcium Level 7.1L, Phosphorus Level 1.1L, Aspartate Amino Transf (AST/SGOT) 94H, Alanine Aminotransferase (ALT/SGPT) 56, Alkaline Phosphatase 149H, Total Bilirubin 1.1H, Total Protein 5.9L, Albumin 2.5L, Magnesium Level 0.9*L, Albumin/Globulin Ratio 0.74L 04/26/19 05:48: Urine Appearance CLEAR, Urine Color YELLOW, Urine pH 7.0, Urine Specific [place] 1.008, Urine Protein NEGATIVE, Urine Glucose (UA) NEGATIVE, Urine Ketones 1+H, Urine Urobilinogen 2.0H, Urine Bilirubin NEGATIVE, Urine Leukocyte Esterase 1+H, Urine Blood NEGATIVE, Urine Nitrite NEGATIVE, Urine WBC (Auto) 5H, Urine RBC (Auto) 5H, Urine Hyaline Casts (Auto) 0, Urine Bacteria (Auto) NEGATIVE, Urine Squamous Epithelial Cells 1, Urine Mucus (Auto) SMALL, Urine Sperm (Auto) 04/26/19 23:22: Bedside Glucose (Misc Panel) 96 CBC/BMP Laboratory Tests 04/26/19 05:30 Red Blood Count 3.27 L, Mean Corpuscular Volume 96.9 H, Mean Corpuscular Hemoglobin 32.7, Mean Corpuscular Hemoglobin Concent 33.8, Red Cell Distribution Width 13.4, Neutrophils (%) (Auto) 74.2 H, Lymphocytes (%) (Auto) 10.3 L, Monocytes (%) (Auto) 13.7 H, Eosinophils (%) (Auto) 0.7, Basophils (%) (Auto) 0.2, Neutrophils # (Auto) 9.5 H, Lymphocytes # (Auto) 1.3 L, Monocytes # (Auto) 1.8 H, Eosinophils # (Auto) 0.1, Basophils # (Auto) 0.0, Calcium Level 7.1 L, Phosphorus Level 1.1 L, Aspartate Amino Transf (AST/SGOT) 94 H, Alanine Aminotransferase (ALT/SGPT) 56, Alkaline Phosphatase 149 H, Total Bilirubin 1.1 H, Total Protein 5.9 L, Albumin 2.5 L Microbiology Microbiology 04/24/19 Urine Culture - Final, Complete SEBLE BELLE MD Apr 27, 2019 01:47
[2019-04-27] MEDS: PERCOCET 5MG/325MG TAB PO PRN ×2 (12:42→18:45)
[2019-04-27 14:00] VITALS: BP 134/94
[2019-04-27] MEDS: THIAMINE HCL 200 MG/2 ML VIAL (J3411) IV SCH (16:41)
[2019-04-27] MEDS: PANTOPRAZOLE 40MG INJ (PROTONIX) (C9113) IV SCH (16:41)
[2019-04-27] MEDS ORDERED: FOLIC ACID 1 MG TAB PO SCH (21:00)
[2019-04-27 22:00] VITALS: BP 136/98
[2019-04-28] MEDS: KCL 40MEQ in NS 1000ML 1,000 ML IV SCH ×2 (01:35→09:08)
[2019-04-28] MEDS: PERCOCET 5MG/325MG TAB PO PRN ×2 (01:45→09:10)
[2019-04-28 06:00] VITALS: BP 115/71
[2019-04-28 06:11] LABS: HEMATOCRIT 29.7 % (36.0-47.0); MEAN CORPUSCULAR HEMOGLOBIN 32.7 pg (27.0-33.0); MEAN CORPUSCULAR HGB CONC 33.7 g/dl (32.0-36.5); MEAN CORPUSCULAR VOLUME 97.1 fl (80.0-96.0); PLATELET COUNT, AUTOMATED 321 10^3/uL (150-450); RED BLOOD COUNT 3.06 10^6/uL (4.00-5.40); WHITE BLOOD COUNT 12.3 10^3/uL (4.0-10.0)
[2019-04-28 06:40] LABS: BLOOD UREA NITROGEN 2 MG/DL (7-18); CALCIUM LEVEL 7.8 MG/DL (8.5-10.1); CARBON DIOXIDE LEVEL 21 MEQ/L (21-32); CHLORIDE LEVEL 102 MEQ/L (98-107); CREATININE FOR GFR 0.45 MG/DL (0.55-1.30); GLOMERULAR FILTRATION RATE > 60.0 (>60); GLUCOSE, FASTING 74 MG/DL (70-100); LYMPHOCYTES 16 % (16-52); MAGNESIUM LEVEL 1.7 MG/DL (1.8-2.4); MONOCYTES 7 % (0-8); NEUTROPHILS 77 % (35-75); PLATELET ESTIMATE NORMAL (NORMAL); POTASSIUM SERUM 3.9 MEQ/L (3.5-5.1); SODIUM LEVEL 134 MEQ/L (136-145)
[2019-04-28] MEDS: HEPARIN SOD (PORCINE) 5000 UNITS/ML VIAL SC SCH (06:49)
[2019-04-28 06:52] LABS: LIPASE 1236 U/L (73-393)
[2019-04-28] MEDS ORDERED: MAG SULF 1GM/100ML (MAG RUN) 1 GM in APPROPRIATE DILUENT 1 EA IV ONE (07:30)
[2019-04-28] MEDS ORDERED: FOLI1TAB11 PO (09:41)
[2019-04-28] MEDS ORDERED: PERCOCET PO (09:41)
[2019-04-28] MEDS ORDERED: THIA100T7 PO (09:41)
[2019-04-28] MEDS ORDERED: OXYC1TAB23 PO (09:47)
--- NOTE | 2019-04-28 23:12 | DS.PDOC ---
Discharge Summary General Date of Admission Apr 24, 2019 at 09:33 Date of Discharge 04/28/2019 Discharge Summary PROCEDURES PERFORMED DURING STAY: [None]. DISCHARGE DIAGNOSES: Acute alcoholic pancreatitis Multiple electrolyte abnormalities: Hypomagnesemia, Hypophosphatemia, Hypokalemia Alcoholic Hepatitis SECONDARY DIAGNOSIS: Hypertension, Insomnia, Anxiety, GERD, Gall stones, Fatty liver COMPLICATIONS/CHIEF COMPLAINT: Pancreatitis. HISTORY OF PRESENT ILLNESS: See history and physical HOSPITAL COURSE: Acute Pancreatitis due to alcohol abuse last drink on 04/23/19 The patient continues to have pain consistent with pancreatitis, and an elevated lipase level of greater than 20 thousand on presentation. Now improved. CT Abd/pel with Acute interstitial edematous pancreatitis. Borderline hepato megaly with fatty infiltration. Minimal free fluid, likely related to pancreatitis. Cholelithiasis with multiple small stones. But no CBD obstruction. LFTs are improving. Pain controlled with percocet. advanced diet to Full liquids which she is tolerating. Hypomagnesemia due to alcohol abuse replaced. Hypophosphatemia replaced Hypokalemia replaced Elevated LFTs due to alcoholic hepatitis and fatty liver No CBD obstruction seen in CT scan. Lfts improving MRCP for further delineation of bile duct, and to r/o choledocholithiasis if LFTs rise again. Alcohol Abuse Patient reports that her last alcoholic beverage was on 04/23/19 Patient counseled to quit. HTN, stable amlodipine GERD Cont PPI Insomnia/ depression continue home meds DISCHARGE MEDICATIONS: Please see below. ALLERGIES: Please see below. PHYSICAL EXAMINATION ON DISCHARGE: VITAL SIGNS: Please see below. General Exam: Positive: Alert, Cooperative, No Acute Distress Eye Exam: Positive: PERRLA, Conjunctiva & lids normal, EOMI; Negative: Sclera icteric ENT Exam: Positive: Atraumatic, Mucous membr. moist/pink, Pharynx Normal Neck Exam: Positive: Supple; Negative: JVD, thyromegaly Chest Exam: Positive: Clear to auscultation, Normal air movement Heart Exam: Positive: Rate Normal, Regular Rhythm, Normal S1, Normal S2; Negative: Murmurs, Rubs Abdomen Exam: Positive: Normal bowel sounds, Soft, Tenderness (in the central abdomen and epigastrium), Other (No rebound tenderness. No guarding or rigidity) Extremity Exam: Negative: Clubbing, Cyanosis, Edema Skin Exam: Positive: Nl turgor and temperature; Negative: Rash, Breakdown LABORATORY DATA: Please see below. ACTIVITY: [As tolerated]. DIET: Full liquid diet for 3 days then soft, low fat , low cholesterol low roughage diet for 1 week. DISPOSITION: 01 Home, Self-Care. DISCHARGE INSTRUCTIONS: Follow up with PMD within 1 week DISCHARGE CONDITION: [Stable]. TIME SPENT ON DISCHARGE: 40 minutes. Vital Signs/I&Os Vital Signs Date Time Temp Pulse Resp B/P (MAP) Pulse Ox O2 Delivery O2 Flow Rate FiO2 04/28/19 09:40 18 04/28/19 06:00 98.0 84 115/71 (86) 99 04/24/19 12:31 Room Air I&O- Last 24 Hours up to 6 AM 04/28/19 06:00 Intake Total 3820 ml Output Total 5550 ml Balance -1730 ml Laboratory Data Labs 24H Laboratory Tests 2 04/28/19 05:27: White Blood Count 12.3H, Red Blood Count 3.06L, Hemoglobin 10.0L, Hematocrit 29.7L, Mean Corpuscular Volume 97.1H, Mean Corpuscular Hemoglobin 32.7, Mean Corpuscular Hemoglobin Concent 33.7, Red Cell Distribution Width 13.7, Platelet Count 321, Monocytes # (Auto) , Nucleated Red Blood Cells % (auto) 0.0, Ne utrophils 77H, Lymphocytes (Manual) 16, Monocytes (Manual) 7, Platelet Estimate NORMAL, Red Blood Cell Morphology NORMAL, Anion Gap 11, Glomerular Filtration Rate > 60.0, Blood Urea Nitrogen 2#L, Creatinine 0.45L, Sodium Level 134L, Potassium Level 3.9, Chloride Level 102, Carbon Dioxide Level 21, Calcium Level 7.8L, Phosphorus Level 3.0#, Magnesium Level 1.7L, Lipase 1236H CBC/BMP Laboratory Tests 04/28/19 05:27 Red Blood Count 3.06 L, Mean Corpuscular Volume 97.1 H, Mean Corpuscular Hemoglobin 32.7, Mean Corpuscular Hemoglobin Concent 33.7, Red Cell Distribution Width 13.7, Monocytes # (Auto) , Calcium Level 7.8 L Microbiology Microbiology 04/24/19 Urine Culture - Final, Complete Discharge Medications Scheduled Amlodipine Besylate (Amlodipine Besylate) 10 Mg Tablet, 10 MG PO DAILY, (Reported) Folic Acid (Folic Acid) 1 Mg Tablet, 1 MG PO QHS Magnesium Oxide (Magnesium) 500 Mg Cap, 500 MG PO DAILY, (Reported) Omeprazole Magnesium (Prilosec Otc) 20 Mg Tablet.dr, 20 MG PO DAILY, (Reported) Potassium Chloride (Potassium Chloride) 10 Meq Tab.er.prt, 20 MEQ PO DAILY, (Reported) Sertraline HCl (Sertraline HCl) 50 Mg Tablet, 50 MG PO DAILY, (Reported) Thiamine HCl (Thiamine HCl) 100 Mg Tablet, 1 TAB PO DAILY Trazodone HCl (Trazodone HCl) 50 Mg Tablet, 50 MG PO QPM, (Reported) Scheduled PRN Oxycodone HCl/Acetaminophen (Oxycodone-Acetaminophen 5-325) 1 Each Tablet, 1-2 TAB PO BIDP PRN for pain Allergies Coded Allergies: DEMETRIUS Inhibitors (Verified Allergy, Severe, face swelling-lisinopril, ) SEBLE BELLE MD Apr 28, 2019 23:12
== END 2019-04-28 12:00 | disposition home or self-care (01) | DRG 439 ==
LOC: M ED 03:18 → M ED INP 09:33 → M MSPAV 12:37
PROVIDERS: ADMIT Hospitalist; ATTEND Internal Medicine Nephrology
DX: K85.20 Alcohol induced acute pancreatitis without necrosis or infection (principal); E87.1 Hypo-osmolality and hyponatremia; K80.20 Calculus of gallbladder without cholecystitis without obstruction; F10.10 Alcohol abuse, uncomplicated; I10 Essential (primary) hypertension; E78.5 Hyperlipidemia, unspecified; K70.0 Alcoholic fatty liver; G47.00 Insomnia, unspecified; F32.9 Major depressive disorder, single episode, unspecified; F41.9 Anxiety disorder, unspecified; E83.39 Other disorders of phosphorus metabolism; K70.10 Alcoholic hepatitis without ascites; E83.42 Hypomagnesemia; D50.9 Iron deficiency anemia, unspecified; E87.6 Hypokalemia; Z88.8 Allergy status to other drugs, medicaments and biological substances; Z79.891 Long term (current) use of opiate analgesic; Z79.899 Other long term (current) drug therapy

== ENCOUNTER 2019-10-13 06:09 | Emergency (ER) | payer OTHER ==
[~2019-10-13] VITALS: Ht 175.3 cm; Wt 71.4 kg
[~2019-10-13 06:09] MED LIST changes: +AMLO10TA5 PO; +PERCOCET PO; +POTA10TA67 PO; +SERT50TA29 PO; +THIA100T7 PO; +TRAZ1TAB11 PO
[2019-10-13] MEDS ORDERED: ACAM0.05 PO (06:17)
[2019-10-13 07:40] LABS: INFLUENZA A AMPLIFICATION NEGATIVE (NEGATIVE); INFLUENZA B AMPLIFICATION NEGATIVE (NEGATIVE)
[2019-10-13] MEDS ORDERED: IBUPROFEN 800 MG TAB PO ONE (07:45)
[2019-10-13 08:07] LABS: BASO % 0.4 % (0.0-1.0); EOS % 0.3 % (0.0-3.0); HEMATOCRIT 35.7 % (36.0-47.0); HEMOGLOBIN 11.3 g/dl (12.0-15.5); LYMPH # 1.6 10^3/uL (1.5-5.0); LYMPH % 15.4 % (24.0-44.0); MEAN CORPUSCULAR HEMOGLOBIN 27.8 pg (27.0-33.0); MEAN CORPUSCULAR HGB CONC 31.7 g/dl (32.0-36.5); MEAN CORPUSCULAR VOLUME 87.9 fl (80.0-96.0); MONO # 0.9 10^3/uL (0.0-0.8); MONO % 8.9 % (0.0-5.0); NEUTROPHILS # 7.7 10^3/uL (1.5-8.5); NEUTROPHILS % 74.6 % (36.0-66.0); PLATELET COUNT, AUTOMATED 380 10^3/uL (150-450); RED BLOOD COUNT 4.06 10^6/uL (4.00-5.40); WHITE BLOOD COUNT 10.4 10^3/uL (4.0-10.0)
[2019-10-13 08:36] LABS: MONO SCRN NEGATIVE (NEGATIVE)
[2019-10-13 08:37] LABS: ALBUMIN 3.3 GM/DL (3.2-5.2); ALT/SGPT 13 U/L (12-78); BILIRUBIN,DIRECT < 0.1 MG/DL (0.0-0.2); BILIRUBIN,TOTAL 0.2 MG/DL (0.2-1.0); C REACTIVE PROTEIN QUANTITATIV 6.25 MG/DL (0.00-0.30); ERYTHROCYTE SEDIMENTATION RATE 52 mm/hr (0-20)
[2019-10-13] MEDS ORDERED: methylPREDNISolone INJ 125 MG/2 ML VIAL (J2930) IV ONE (09:00)
[2019-10-13] MEDS ORDERED: ISOVUE-370 76% 100ML VIAL (Q9967) As Ordered ONE (09:33)
--- NOTE | 2019-10-13 10:24 | REP ---
CT neck soft tissues: 10/13/2019. Indication: Neck swelling. Hoarseness. Comparison: 01/15/2019. Technique: Axial images of the neck soft tissues were obtained following IV administration of 75 ml Isovue 370. Coronal and sagittal reconstructions were provided. Findings: There are no abnormal solid soft tissue masses, abnormal fluid collections or cervical lymphadenopathy. No significant stranding / inflammatory sequelae are present. The paranasal sinuses and mastoid air cells are clear. No significant vascular abnormalities are detected. The airway is patent. The visualized lungs are clear. Impression: No acute pathology of the neck soft tissues. Electronically Signed by Yahir Steiner DO 10/13/2019 10:15 A
[2019-10-13] MEDS ORDERED: PRED20TA PO ×2 (10:45→10:49)
[2019-10-13] MEDS ORDERED: AMOX500C PO ×2 (10:45→10:49)
[2019-10-13 10:55] VITALS: BP 121/76
== END 2019-10-13 11:00 | disposition home or self-care (01) ==
LOC: M ED 06:09
DX: J02.9 Acute pharyngitis, unspecified (principal); I10 Essential (primary) hypertension; Z79.899 Other long term (current) drug therapy; Z88.8 Allergy status to other drugs, medicaments and biological substances
CPT/HCPCS: 36415; 70491; 80047; 80076; 85025; 85652; 86140; 86308; 87631; 87880; 96374; 99284; J2930; Q9967